=== PATIENT | female | born 1960 | race Caucasian/White ===

== ENCOUNTER 2016-09-19 06:29 | Day surgery (SDC) | payer MEDICARE, OTHER ==
[2016-09-11 15:51] VITALS: BMI 21.6
[~2016-09-19 06:29] MED LIST: HEPARIN SODIUM,PORCINE 5,000 UNIT/ML 1 ML VIAL SQ ONE; LACTATED RINGERS 1,000 ML IV SCH; Pre Op ABX Message 1 EACH MISC MISCELLANE ONE
--- NOTE | 2016-09-19 08:02 | P.GSHP ---
History of Present Illness H&P Date: 09/19/16 Chief Complaint: Left third finger skin lesion This is a 56-year-old female who has developed a nodule over her left third finger. The lesion is over the left third PIP. Patient's had a previous nodule removed which was thought to be a rheumatoid nodule. Patient is complaining of pain and pressure at the nodule site. She presents today for excision. - Constitutional Constitutional: Reports as per HPI Past Medical History Past Medical History: Fibromyalgia, Rheumatoid Arthritis (RA) Additional Past Medical History / Comment(s): migranes History of Any Multi-Drug Resistant Organisms: None Reported Past Surgical History: Orthopedic Surgery Additional Past Surgical History / Comment(s): RIGHT BUNIONECTOMY, ANG EYELID SX , RHEUMATOID NODULE LEFT MID FINGER, RT HAND TENDON REPAIR, PAST EPIDURAL, left shoulder scope and right knee Additional Past Anesthesia/Blood Transfusion Reaction / Comment(s): "I GET SEVERE HEADACHES FROM PROPOFAL, AND ALSO VERY HARD TIME WAKING UP" Past Psychological History: No Psychological Hx Reported Smoking Status: Current every day smoker Past Alcohol Use History: Occasional, Rare Past Drug Use History: None Reported - Past Family History Mother Family Medical History: No Reported History Medications and Allergies Home Medications Medication Instructions Recorded Confirmed Type Etanercept [Enbrel] 50 mg INJ [id number] 07/13/14 09/19/16 History Meloxicam [Meloxicam] 15 mg PO DAILY 07/13/14 09/19/16 History Cholecalciferol [Vitamin D3] 2,000 unit PO DAILY 09/11/16 09/19/16 History Fluticasone Nasal [place] [Flonase 2 spr EA NOSTRIL DAILY 09/11/16 09/19/16 History Nasal [place]] SUMAtriptan SUCCINATE [Imitrex] 100 mg PO ONCE 09/11/16 09/19/16 History oxyCODONE-APAP 10-325MG [Percocet 1 tab PO Q6HR PRN 09/11/16 09/19/16 History 10-325 mg] Allergies Allergy/AdvReac Type Severity Reaction Status Date / Time propofol AdvReac Unknown Verified 09/19/16 06:50 Surgical - Exam Vital Signs Temp Pulse Resp BP Pulse Ox 97.8 F 76 18 122/69 99 09/19/16 06:48 09/19/16 06:48 09/19/16 06:48 09/19/16 06:48 09/19/16 06:48 - General well developed, no distress - Eyes PERRL - ENT normal pinna - Neck no masses - Respiratory normal expansion - Cardiovascular Rhythm: regular - Abdomen Abdomen: soft, non tender Assessment and Plan Plan: Left third finger skin lesion. We'll perform excision.
[2016-09-19] MEDS ORDERED: PROPOFOL 10 MG/ML 20 ML VIAL IV ONE (08:07)
[2016-09-19] MEDS ORDERED: fentaNYL (PF) 50 MCG/ML 2 ML AMP ONE (08:07)
[2016-09-19] MEDS ORDERED: SODIUM CHLORIDE 0.9% 50 ML BAG ONE (08:07)
[2016-09-19] MEDS ORDERED: ceFAZolin 1,000 MG VIAL ONE (08:07)
[2016-09-19] MEDS ORDERED: LIDOCAINE 1% INJ 10MG/ML (20 ML MDV) ONE (08:07)
[2016-09-19] MEDS ORDERED: MIDAZOLAM 2 MG/2 ML VIAL ONE (08:07)
[2016-09-19] MEDS ORDERED: BUPIVACAINE (PF) 0.25% 30 ML VIAL SQ ONE (08:29)
[2016-09-19] MEDS ORDERED: SODIUM CHLORIDE 0.9% 50 ML with ceFAZolin 2,000 MG IV ONE ×2 (08:39)
--- NOTE | 2016-09-19 08:56 | P.OP ---
Date of Procedure: 09/19/16 Preoperative Diagnosis: Left third finger skin lesion Postoperative Diagnosis: Left third finger skin lesion Procedure(s) Performed: Excision of left third finger skin lesion Anesthesia: MAC, regional, local Surgeon: Regan Patel Estimated Blood Loss (ml): 2 Pathology: other (Left third finger skin lesion) Condition: stable Disposition: PACU Description of Procedure: The patient's placed Table in the supine position. She received IV sedation. Her finger was prepped and draped usual sterile fashion. A digital block using quarter percent plain lidocaine was performed. After adequate anesthesia the skin lesion was visualized skin lesion was just distal to the PIP joint on the third finger. The lesion was on the dorsal aspect of the finger. The lesion measured approximately 5 mm diameter. Using a 15 blade in elliptical skin incision was made around the lesion. The Bovie was used for hemostasis. The lesion was excised using sharp dissection and the Bovie was used for hemostasis. The skin was then reapproximated using 4-0 nylon. Sterile dressings was applied. Patient top procedure well was sent to recovery in stable condition.
[2016-09-19 09:03] VITALS: TEMP 97.5
[2016-09-19 09:11] VITALS: BP 122/68; PULSE 69; RESP 16
== END 2016-09-19 09:44 | disposition home or self-care (01) ==
LOC: OR 06:29
PROVIDERS: ATTEND Surgery
DX: L82.1 Other seborrheic keratosis (principal); M06.9 Rheumatoid arthritis, unspecified; F32.9 Major depressive disorder, single episode, unspecified; G43.909 Migraine, unspecified, not intractable, without status migrainosus; M79.7 Fibromyalgia; Z88.4 Allergy status to anesthetic agent; F17.200 Nicotine dependence, unspecified, uncomplicated; Z79.51 Long term (current) use of inhaled steroids; Z79.899 Other long term (current) drug therapy; Z79.891 Long term (current) use of opiate analgesic
CPT/HCPCS: 11420; 88305; J2250; J0690; J2001; J3010; J2704; 99152; 99153

== ENCOUNTER → 2016-09-27 | Outpatient (CLI) | payer MEDICARE, OTHER ==
[2016-09-30 21:17] LABS: Beef IgG 6.2 mcg/mL (< 2.0); Chicken Meat IgG 2.4 mcg/mL (< 2.0); Corn IgG 4.9 mcg/mL (< 2.0); Peanut IgG < 2.0 mcg/mL (< 2.0); Pork IgG 3.5 mcg/mL (< 2.0); Potato IgG < 2.0 mcg/mL (< 2.0); Soybean IgG < 2.0 mcg/mL (< 2.0); Tomato IgG 2.9 mcg/mL (< 2.0)
== END | disposition home or self-care (01) ==
LOC: LABWHC1 10:27
PROVIDERS: ATTEND Otolaryngology
DX: J30.89 Other allergic rhinitis (principal)
CPT/HCPCS: 36415; 86001

== ENCOUNTER → 2017-10-21 | Outpatient (CLI) | payer MEDICARE, OTHER ==
[2017-10-21 12:14] LABS: Basophils # (A) 0.1 k/uL (0-0.2); Basophils % (A) 1 %; Eosinophils # (A) 0.1 k/uL (0-0.7); Eosinophils % (A) 2 %; HCT 43.1 % (34.0-46.0); HGB 13.8 gm/dL (11.4-16.0); Lymphocytes # (A) 2.4 k/uL (1.0-4.8); Lymphocytes % (A) 37 %; MCH 30.4 pg (25.0-35.0); MCHC 31.9 g/dL (31.0-37.0); MCV 95.2 fL (80.0-100.0); Mean Platelet Volume 6.7; Monocytes # (A) 0.3 k/uL (0-1.0); Monocytes % (A) 5 %; Neutrophils # (A) 3.6 k/uL (1.3-7.7); Neutrophils % (A) 55 %; Platelet Count 383 k/uL (150-450); RBC 4.53 m/uL (3.80-5.40); RDW 12.4 % (11.5-15.5); WBC 6.5 k/uL (3.8-10.6)
--- NOTE | 2017-10-21 12:22 | XR ---
EXAMINATION TYPE: XR lumbosacral spine min 4V DATE OF EXAM: 10/21/2017 CLINICAL HISTORY: Low back pain for multiple years with no known injury TECHNIQUE: Frontal, lateral, and oblique images of the lumbar spine are obtained. COMPARISON: 10/07/2013 FINDINGS: There are 5 lumbar type vertebral bodies identified. Moderate multilevel degenerative disc disease seen as facet arthropathy, endplate sclerosis, and intervertebral disc space narrowing at L4 -L5 and L5-S1. There is grade 1 anterolisthesis of L4 on L5 this is unchanged from the exam of 014. The remainder of the lumbar spine shows satisfactory alignment without evidence of acute fractur e or dislocation. Vertebral body heights are maintained. On the oblique views there is at least mild neural foraminal narrowing at L2-L3, L3-L4 and L4-L5 on the right and at L3-L4 and L4-L5 on the left. Numerous calcifications are seen in the region of the spleen and may relate to densely calcified gra nulomas. IMPRESSION: 1. No acute fracture is seen in the lumbar spine. 2. Persistent grade 1 anterolisthesis of L4 and L5 as seen on the prior examination of 10/07/2013. 3. Moderate multilevel degenerative disc disease of the lumbar spine creating neural foraminal narrow ing as described above. More accurate assessment of degree of neuroforaminal narrowing in addition to evaluation of spinal canal stenosis and disc herniation could be performed with MR if clinically ind icated.
[2017-10-21 12:23] LABS: ALT 14 U/L (9-52); AST 18 U/L (14-36); Albumin 4.2 g/dL (3.5-5.0); Alkaline Phosphatase 83 U/L (38-126); Anion Gap 8 mmol/L; Appearance,Urine Clear (Clear); Bacteria,Urine Rare /hpf; Bilirubin,Urine Negative (Negative); Blood Urea Nitrogen 11 mg/dL (7-17); Blood,Urine Small (Negative); C Reactive Protein <5.0 mg/L (<10.0); Calcium 9.6 mg/dL (8.4-10.2); Carbon Dioxide 31 mmol/L (22-30); Chloride 103 mmol/L (98-107); Color,Urine Yellow; Creatine Kinase 52 U/L (30-135); Glucose 83 mg/dL (74-99); Glucose,Urine (UA) Negative (Negative); Ketones,Urine Negative (Negative); Leukocyte Esterase,Urine Moderate (Negative); Mucus,Urine Rare /hpf; Nitrite,Urine Negative (Negative); PH, Urine 5.5 (5.0-8.0); Potassium 4.1 mmol/L (3.5-5.1); Protein,Urine Negative (Negative); RBC,Urine 5 /hpf (0-5); Sodium 142 mmol/L (137-145); Specific Gravity,Urine 1.011 (1.001-1.035); Squamous Epithelial Cell,Urine 1 /hpf (0-4); Total Bilirubin 0.7 mg/dL (0.2-1.3); Total Protein 7.1 g/dL (6.3-8.2); Uric Acid 4.4 mg/dL (3.7-7.4); Urobilinogen,Urine <2.0 mg/dL (<2.0); WBC,Urine 3 /hpf (0-5)
[2017-10-21 12:38] LABS: T4, Free (Free Thyroxine) 1.32 ng/dL (0.78-2.19)
--- NOTE | 2017-10-21 13:04 | XR ---
EXAMINATION TYPE: XR sacroiliac joint comp BILAT DATE OF EXAM: 10/21/2017 CLINICAL HISTORY: Low back pain for multiple years with no known injury. TECHNIQUE: 3 views of the sacroiliac joints were performed COMPARISON: None. FINDINGS: There is minimal sacroiliac joint sclerosis that is symmetric and bilateral. No joint space widening is seen. No acute fracture of the sacrum is noted. Visualized bowel gas pattern within the pelvis is nonobstructive. IMPRESSION: No evidence of acute fracture or malalignment of the sacroiliac joints. Minimal degenerat mara change. No sacroiliac joint space widening.
[2017-10-21 14:36] LABS: Erythrocyte Sedimentation Rate 6 mm/hr (0-20)
[2017-10-21 15:26] LABS: Rheumatoid Factor 171 IU/mL (0-15)
[2017-10-21 17:35] LABS: Centromere Antibody Interp NEGATIVE (NEGATIVE); Cyclic Citrullinated Pep IgG POSITIVE (NEGATIVE)
== END | disposition home or self-care (01) ==
LOC: LABWHC1 10:24
PROVIDERS: ATTEND Internal Medicine
DX: M99.73 Connective tissue and disc stenosis of intervertebral foramina of lumbar region (principal); M99.74 Connective tissue and disc stenosis of intervertebral foramina of sacral region; M51.36 Other intervertebral disc degeneration, lumbar region; M43.16 Spondylolisthesis, lumbar region; G89.29 Other chronic pain; M05.79 Rheumatoid arthritis with rheumatoid factor of multiple sites without organ or systems involvement
CPT/HCPCS: 36415; 72110; 72202; 80053; 81001; 82085; 82550; 83516; 84439; 84443; 84550; 85025; 85652; 86038; 86039; 86140; 86160; 86200; 86225; 86235; 86431

== ENCOUNTER → 2019-03-15 | Outpatient (CLI) | payer MEDICARE, OTHER ==
--- NOTE | 2019-03-15 08:48 | CT ---
EXAMINATION TYPE: CT sinus wo con DATE OF EXAM: 03/15/2019 COMPARISON: None HISTORY: Chronic sinusitis CT DLP: 641.6 mGycm. Automated Exposure Control for Dose Reduction was Utilized. TECHNIQUE: CT scan of the sinuses is performed without contrast, axial images are obtained, coronal r eformatted images are also reviewed. FINDINGS: The paranasal sinuses including the frontal, ethmoid, sphenoid, and maxillary sinuses bila terally are well-aerated without abnormal opacification. The ostiomeatal complex is patent bilateral ly on the coronal images. Visualized portion of mastoid air cells show no abnormal opacification. The globes are intact bilate rally. There is a slight nasal septal deviation IMPRESSION: The sinuses are clear and the ostiomeatal complex is patent bilaterally.
== END | disposition home or self-care (01) ==
LOC: RADCTMAIN 08:18
PROVIDERS: ATTEND Otolaryngology
DX: J32.9 Chronic sinusitis, unspecified (principal)
CPT/HCPCS: 70486

== ENCOUNTER → 2019-07-29 | Outpatient (CLI) | payer MEDICARE, OTHER ==
[2019-07-29 09:25] LABS: Basophils # (A) 0.1 k/uL (0-0.2); Basophils % (A) 2 %; Eosinophils # (A) 0.1 k/uL (0-0.7); Eosinophils % (A) 2 %; HCT 43.8 % (34.0-46.0); HGB 14.3 gm/dL (11.4-16.0); Lymphocytes # (A) 1.8 k/uL (1.0-4.8); Lymphocytes % (A) 26 %; MCH 31.3 pg (25.0-35.0); MCHC 32.7 g/dL (31.0-37.0); MCV 95.7 fL (80.0-100.0); Mean Platelet Volume 6.1; Monocytes # (A) 0.5 k/uL (0-1.0); Monocytes % (A) 7 %; Neutrophils # (A) 4.4 k/uL (1.3-7.7); Neutrophils % (A) 63 %; Platelet Count 281 k/uL (150-450); RBC 4.58 m/uL (3.80-5.40); RDW 12.8 % (11.5-15.5)
[2019-07-29 14:00] LABS: Erythrocyte Sedimentation Rate 2 mm/hr (0-20)
[2019-07-29 17:50] LABS: Hepatitis B Core IgM Non-Reactive (Non-Reactive); Hepatitis B Surface AB- Quant 3.5 mIU/mL; Hepatitis B Surface Antibody Non-Reactive (Non-Reactive); Hepatitis B Surface Antigen Non-Reactive (Non-Reactive); Hepatitis C IgG Antibody Non-Reactive (Non-Reactive)
[2019-07-29 19:14] LABS: ALT 26 U/L (8-44); AST 29 U/L (13-35); African American GFR (CKD) 92.9 (60.0-200.0); Albumin/Globulin Ratio 2.19 (1.60-3.17); Alkaline Phosphatase 73 U/L (41-126); C Reactive Protein <0.4 mg/dL (0.0-0.8); Calcium 9.7 mg/dL (8.7-10.3); Carbon Dioxide 26.8 mmol/L (21.6-31.8); Chloride 106 mmol/L (96-109); Chol/HDL Ratio 4.68; Cholesterol 318 mg/dL (0-200); Globulin 2.1 g/dL (1.6-3.3); Glucose 83 mg/dL (70-110); LDL Cholesterol,Calculated 214.6 mg/dL (0.0-131.0); Non-African American GFR(CKD) 80.1 (60.0-200.0); Potassium 4.2 mmol/L (3.5-5.5); Sodium 140 mmol/L (135-145); Total Bilirubin 1.3 mg/dL (0.2-1.2); Total Protein 6.7 g/dL (6.2-8.2)
== END | disposition home or self-care (01) ==
LOC: LABWHC1 07:57
PROVIDERS: ATTEND Internal Medicine Rheumatology
DX: M05.9 Rheumatoid arthritis with rheumatoid factor, unspecified (principal); Z51.81 Encounter for therapeutic drug level monitoring; Z79.899 Other long term (current) drug therapy
CPT/HCPCS: 36415; 80053; 80061; 85025; 85652; 86140; 86480; 86704; 86705; 86706; 86803; 87340

== ENCOUNTER → 2019-11-25 | Outpatient (CLI) | payer MEDICARE, OTHER ==
--- NOTE | 2019-11-25 10:45 | CTL ---
EXAMINATION TYPE: CT Low Dose Lung DATE OF EXAM ORDERED: 11/25/2019 HISTORY: Long-term tobacco use.. Lung cancer screening CT DLP: 63.[address] CTDI: 1.7 mGy Automated exposure control for dose reduction was used. SCREENING VISIT: For study COMPARISON: None TECHNIQUE: Low dose computed tomography scan was performed through the chest at 1 mm thick sections a nd reconstructed images in the coronal plane at [address] DIAGNOSTIC QUALITY: Satisfactory FINDINGS: LUNG NODULES: None. A group of 3 calcified nodules or granulomas periphery left upper lobe measure up to 1.0 cm long axis axial image 54. There is calcified 4 mm posterior right upper lobe nodule or granuloma axial image 9 1. LUNGS: COPD: Severity: Mild Fibrosis: Severity: Mild to moderate bibasilar Lymph nodes: No greater than 1 cm noncalcified. Prominent but subcentimeter calcified left suprahilar and AP window lymph nodes. Other findings: None BILATERAL PLEURAL SPACE: Effusion: None Calcification: None Thickening: None Pneumothorax: None. HEART: Heart Size: None Coronary calcification: Mild but is focally located in the proximal left circumflex axial image 169 for reference. Pericardial effusion: None. OTHER FINDINGS: Upper abdomen: Scattered small calcifications throughout visualized portion of spleen consistent with product of old granulomatous disease. Bony thorax: Slight scoliotic curvature with mild spurring. Supraclavicular region: None. Other: None. IMPRESSION: No suspicious noncalcified greater than [address] UP [address] CHEST RECOMMENDATION: Annual low-dose lung screening CT. CT LUNG RAD: Lung-Rad 2 Benign Appearance or Behavior
== END | disposition home or self-care (01) ==
LOC: RADCTMAIN 09:42
PROVIDERS: ATTEND Family Medicine
DX: Z12.2 Encounter for screening for malignant neoplasm of respiratory organs (principal); F17.210 Nicotine dependence, cigarettes, uncomplicated

== ENCOUNTER → 2020-05-18 | Outpatient (CLI) | payer MEDICARE, OTHER ==
--- NOTE | 2020-05-18 11:14 | MR ---
MR brain without contrast HISTORY: Dizziness, benign positional vertigo Multiplanar multisequence imaging through the brain MR correlation prior brain 12/23/2015 There is no restricted diffusion. There is no hemorrhage or hydrocephalus. Cerebellopontine angles, c orpus callosum, pituitary, cervical medullary junction are stable and unremarkable. Brain signal is u nchanged. Jay-white differentiation is normal. The orbits show symmetric appearance. There are mike l vascular flow voids. Paranasal sinuses and mastoid air cells are well aerated. IMPRESSION: Stable unremarkable brain MRI.
== END | disposition home or self-care (01) ==
LOC: RADMRIMAIN 08:43
PROVIDERS: ATTEND Psychiatry & Neurology Neurology
DX: H81.10 Benign paroxysmal vertigo, unspecified ear (principal)
CPT/HCPCS: 70551

== ENCOUNTER → 2020-11-06 | Outpatient (CLI) | payer MEDICARE, OTHER ==
[2020-11-06 15:58] LABS: ALT 12 U/L (8-44); AST 16 U/L (13-35); African American GFR (CKD) 92.2 (60.0-200.0); Albumin/Globulin Ratio 1.44 (1.60-3.17); Alkaline Phosphatase 96 U/L (41-126); C Reactive Protein <0.4 mg/dL (0.0-0.8); Calcium 9.1 mg/dL (8.7-10.3); Carbon Dioxide 28.4 mmol/L (21.6-31.8); Chloride 106 mmol/L (96-109); Globulin 2.7 g/dL (1.6-3.3); Glucose 77 mg/dL (70-110); Non-African American GFR(CKD) 79.6 (60.0-200.0); Potassium 4.1 mmol/L (3.5-5.5); Sodium 140 mmol/L (135-145); Total Bilirubin 0.6 mg/dL (0.3-1.2); Total Protein 6.6 g/dL (6.2-8.2)
[2020-11-06 16:59] LABS: Basophils # (A) 0.04 X 10*3/uL (0.00-0.10); Basophils % (A) 0.6 %; Eosinophils # (A) 0.11 X 10*3/uL (0.04-0.35); Eosinophils % (A) 1.7 %; HCT 38.9 % (37.2-46.3); HGB 12.6 g/dL (12.0-15.0); Lymphocytes # (A) 1.96 X 10*3/uL (0.90-5.00); Lymphocytes % (A) 31.1 %; MCHC 32.4 g/dL (32.0-37.0); MCV 95.6 fL (80.0-97.0); Mean Platelet Volume 9.2 fL (9.5-12.2); Monocytes # (A) 0.57 X 10*3/uL (0.20-1.00); Neutrophils # (A) 3.61 X 10*3/uL (1.80-7.70); Neutrophils % (A) 57.4 %; Platelet Count 321 X 10*3/uL (140-440); RBC 4.07 X 10*6/uL (4.10-5.20); RDW 13.2 % (11.5-14.5)
[2020-11-06 21:16] LABS: Erythrocyte Sedimentation Rate 10 mm/Hr (0-30)
== END | disposition home or self-care (01) ==
LOC: LABWHC1 09:02
PROVIDERS: ATTEND Internal Medicine Rheumatology
DX: Z51.81 Encounter for therapeutic drug level monitoring (principal); M05.9 Rheumatoid arthritis with rheumatoid factor, unspecified
CPT/HCPCS: 36415; 80053; 85025; 85652; 86140; 86480

== ENCOUNTER 2021-06-08 11:01 | Day surgery (SDC) | payer MEDICARE, OTHER ==
[2021-06-06 11:33] VITALS: BMI 21.1
[~2021-06-08 11:01] MED LIST changes: -HEPARIN SODIUM,PORCINE 5,000 UNIT/ML 1 ML VIAL SQ ONE; -Pre Op ABX Message 1 EACH MISC MISCELLANE ONE
[2021-06-08 11:39] VITALS: TEMP 98
--- NOTE | 2021-06-08 13:00 | P.GSHP ---
History of Present Illness H&P Date: 06/08/21 Chief Complaint: GERD This a 60-year-old female who presents today for EGD. She's had issues with GERD. Past Medical History Past Medical History: Fibromyalgia, Rheumatoid Arthritis (RA) Additional Past Medical History / Comment(s): migranes. FEELS LIKE SOMETHING STUCK IN THROAT History of Any Multi-Drug Resistant Organisms: None Reported Past Surgical History: Orthopedic Surgery Additional Past Surgical History / Comment(s): RIGHT BUNIONECTOMY, ANG EYELID SX, RHEUMATOID NODULE LEFT MID FINGER, RT HAND TENDON REPAIR, PAST EPIDURAL, left shoulder scope and right knee SX, Past Anesthesia/Blood Transfusion Reactions: Previous Problems w/ Anesthesia Additional Past Anesthesia/Blood Transfusion Reaction / Comment(s): "I GET SEVERE HEADACHES FROM PROPOFAL, AND ALSO VERY HARD TIME WAKING UP" Smoking Status: Current every day smoker - Past Family History Mother Family Medical History: No Reported History Medications and Allergies Home Medications Medication Instructions Recorded Confirmed Type SUMAtriptan SUCCINATE [Imitrex] 100 mg PO DIRECTED PRN 09/11/16 06/08/21 History oxyCODONE-APAP 10-325MG [Percocet 1 tab PO Q6HR PRN 09/11/16 06/08/21 History 10-325 mg] Adalimumab [Humira Pen] 40 mg SQ [id number] 06/06/21 06/08/21 History Cholecalciferol (Vitamin D3) 125 mcg PO DAILY 06/06/21 06/08/21 History [Vitamin D3 (125 MCG = 5,000 IU)] Tumeric 500mg 500 mg PO DAILY 06/06/21 06/08/21 History Allergies Allergy/AdvReac Type Severity Reaction Status Date / Time propofol AdvReac SEVERE Verified 06/08/21 11:31 HEADACHE Surgical - Exam Vital Signs Temp Pulse Resp BP Pulse Ox 98 F 58 L 16 108/63 96 06/08/21 11:37 06/08/21 11:37 06/08/21 11:37 06/08/21 11:37 06/08/21 11:37 - General well developed, well nourished, no distress - Eyes PERRL - ENT normal pinna - Neck no masses - Respiratory normal expansion - Cardiovascular Rhythm: regular - Abdomen Abdomen: soft, non tender Assessment and Plan Assessment: GERD. We'll perform EGD.
[2021-06-08] MEDS ORDERED: PROPOFOL 10 MG/ML 20 ML VIAL IV ONE (13:06)
--- NOTE | 2021-06-08 13:19 | P.OP ---
Date of Procedure: 06/08/21 Preoperative Diagnosis: GERD Postoperative Diagnosis: Antral gastritis No significant hiatal hernia Minimal esophagitis Procedure(s) Performed: EGD Anesthesia: MAC Surgeon: Regan Patel Pathology: other (Antrum, esophagus) Condition: stable Disposition: PACU Description of Procedure: The patient's placed on the endoscopy table in the lateral position. She received IV sedation. The gastroscope placed oropharynx passed in the esophagus into the stomach. The scope was then placed through the pylorus. First and second portion of duodenum appeared normal. Scope was brought back the antrum this. Mildly inflamed. A biopsies performed. Scope was unretroflexed and remainder the stomach appeared normal. There was no significant hiatal hernia. The GE junction was at 40 cm. The distal esophagusAppeared minimally inflamed. A biopsies performed the proximal esophagus appeared normal. Scope withdrawn for patient.
[2021-06-08 13:48] VITALS: BP 135/77; PULSE 60; RESP 18
== END 2021-06-08 14:15 | disposition home or self-care (01) ==
LOC: ORWHC2ENDO 11:01
PROVIDERS: ATTEND Surgery
DX: K21.00 Gastro-esophageal reflux disease with esophagitis, without bleeding (principal); M06.9 Rheumatoid arthritis, unspecified; M79.7 Fibromyalgia; F17.200 Nicotine dependence, unspecified, uncomplicated; J44.9 Chronic obstructive pulmonary disease, unspecified
CPT/HCPCS: 43239; J2704; 88305

== ENCOUNTER → 2021-06-11 | Outpatient (CLI) | payer MEDICARE, OTHER ==
--- NOTE | 2021-06-14 09:43 | NM ---
EXAMINATION TYPE: NM hepatobiliary w CCK DATE OF EXAM: 06/14/2021 COMPARISON: NONE HISTORY: Right upper quadrant pain TECHNIQUE: After the intravenous administration of 4.7 mCi Tc 99m Mebrofenin hepatobiliary scintigrap hy is performed. Immediate images post injection. FINDINGS: There is satisfactory initial accumulation of tracer by the liver. The gallbladder is visualized wit hin 8 minutes. The small bowel activity is noted within 60 minutes. At one hour CCK was administere d, patient was injected with 1.2 mcg of Kinevac, and gallbladder ejection fraction is calculated at 9 2%. IMPRESSION: Elevated gallbladder ejection fraction may reflect hypercontractile state.
== END | disposition home or self-care (01) ==
LOC: RADNMMAIN 06:40
PROVIDERS: ATTEND Surgery
DX: K82.8 Other specified diseases of gallbladder (principal)

== ENCOUNTER → 2021-06-27 | Outpatient (CLI) | payer MEDICARE, OTHER ==
--- NOTE | 2021-06-27 12:21 | US ---
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 Pt states Dr felt diminished so unds with stethoscope within carotids EXAM MEASUREMENTS: RIGHT: Peak Systolic Velocity (PSV) cm/sec ----- Right CCA: 82.0 ----- Right ICA: 110.8 ----- Right ECA: 100.4 ICA/CCA ratio: 1.4 RIGHT: End Diastole cm/sec ----- Right CCA: 30.3 ----- Right ICA: 43.5 ----- Right ECA: 24.1 LEFT: Peak Systolic Velocity (PSV) cm/sec ----- Left CCA: 70.3 ----- Left ICA: 126.3 ----- Left ECA: 83.1 ICA/CCA ratio: 1.8 LEFT: End Diastole cm/sec ----- Left CCA: 26.7 ----- Left ICA: 60.3 ----- Left ECA: 19.3 VERTEBRALS (direction of flow): Right Vertebral: Antegrade Left Vertebral: Antegrade Rhythm: Normal No significant stenosis seen IMPRESSION: 1. Atherosclerotic plaque with no significant hemodynamic stenosis identified. Criteria for Assigning % of Stenosis / Diameter reduction (Estimation based on the indirect measurements of the internal carotid artery velocities (ICA PSV). 1. Normal (no stenosis)=ICA PSV < 125 cm/s: ratio < 2.0: ICA EDV<40 cm/s. 2. Less than 50% stenosis=ICA PSV < 125 cm/s: ratio < 2.0: ICA EDV<40 cm/s. 3. 50 to 69% stenosis=ICA PSV of 125 to 230 cm/s: ration 2.0 ? 4.0: ICA EDV 40-100 cm/s. 4. Greater than 70% stenosis to near occlusion= ICA PSV > 230 cm/s: ratio > 4.0: ICA EDV > 100 cm/s. 5. Near occlusion= ICA PSV velocities may be low or undetectable: variable ratio and ICA EDV. 6. Total occlusion=unable to detect flow.
== END | disposition home or self-care (01) ==
LOC: RADUSWWP 10:46
PROVIDERS: ATTEND Family Medicine
DX: I65.23 Occlusion and stenosis of bilateral carotid arteries (principal)
CPT/HCPCS: 93880

== ENCOUNTER → 2022-04-08 | Outpatient (CLI) | payer MEDICARE, OTHER ==
[2022-04-08 10:50] VITALS: BP 119/66; PULSE 77; RESP 18; TEMP 98.8
--- NOTE | 2022-04-08 12:43 | P.PAINPG ---
PQRS Measure Charge Sheet Comment: HISTORY OF PRESENT ILLNESS: 61 yr old female as a referral from Dr. Nowak presents today with severe and chronic LBP x 40 yrs (worse last 30 yrs) secondary to DDD, anterolisthesis, neuroforaminal stenoses and facet arthropathy for evaluation. Pt states her LBP is at a 6/10 in intensity, constant, shocking ache localized in the center of her lumbar spine with radiation of warmth in the inner part of her L thigh. Also admits to tingling below the knees BL. Provoked by chiropractic treatments, walking for periods of 20 min or more, or bending. Palliated with PT in 2012 via traction, TENS unit use, heat, ice, medications (Percocet QID), laying supine, repositioning and rest. PMH: Fibromyalgia, Rheumatoid Arthritis (RA) PSH: R Bunionectomy, BL Eyelid surgery, L 3rd digit excision, R Hand Tendon Repair, LESIs, L Shoulder Arthroscopy, R Knee Surgery SH: Daily tobacco use, No ETOH abuse, No illicit drug use FH: Mo- No Reported History All: See list Meds: See list REVIEW OF ORGAN SYSTEMS: CONSTITUTIONAL: No fevers or chills. No recent weight loss. NEUROLOGICAL: + numbness and tingling along the distal extremities. No seizure disorders or headaches. MUSCULOSKELETAL: + pain PSYCHIATRIC: Denies current depression or suicidal thoughts. Physical Examinations : Constitutional : Cooperative , not in acute distress . Neurologic : Cranial nerve II to XII intact. No focal neurological deficits. Psychiatric : alert & oriented x 3. Matching mood & appropriate affect. Judgment & insight intact. Musculoskeletal : Cervical Spine Motor strength in the deltoid and biceps: Normal right side. Normal Left side Motor strength biceps and the wrist extensors: Normal right side . Normal left side Motor strength in the triceps muscle: Normal right side. Normal left side Deep tendon reflexes: Normal at the biceps. Normal at Brachioradialis. Normal at triceps Vertebral body tenderness to deep palpation over Cervical facet loading test: positive bilaterally Spurling test: positive bilaterally Neck distraction test: positive bilaterally Elaina sign: positive bilaterally Lumbar spine Motor strength lower extremities ,thigh and legs 5/5 Right side , 5/5 Left side Deep tendon reflexes : Normal Knee Jerk. Normal Ankle Jerk Vertebral body tenderness over L5 Lumbar facet Loading Test: positive Right / positive Left Range of motion of the lumbar spine Flexion 30 degrees, extension 10 degrees Straight Leg Raise test: Left/ Right positive at degree Leno test: positive right / positive left. Severe tenderness over the Sacroiliac joint on the Right / Left sides Gaenslen test: positive bilaterally Seated flexion test: positive bilaterally. Sacral spine : Severe tenderness over the Sacroiliac joint: right side / left side Range of motion: Flexion of the lumbar spine <60 degrees Range of motion: Extension of the lumbar spine <20 degrees Gaenslen's Test positive Wali's Test positive Leno test: positive right side / left side Thigh Thrust Test Sacral Thrust Test Imaging: MRI without contrast of the lumbar spine from 02/25/18 reviewed Assessment/ Plan : Lumbar DDD Recommendation of LESI L5-S1. May need a series of injections, up to 3 within a 6 mo period, for optimal pain relief. Risks, benefits of procedure discussed and patient verbalized understanding. Denies aspirin or anti- coagulant use or me dical history of diabetes. Protocol for discontinuation/ continuation of medications nelly procedure discussed. All questions answered. I have spent greater than 30 minutes on patient care today. Dr Coley was available by phone for the evaluation of this patient. The time was used to review the medical records including relevant urine studies and Prescription history (MAPs), review of the available imaging, evaluation and examination of the patient, coordination of care with the medical staff and if applicable referring physicians, as well as creation of the medical record PQRS Narrative: Smoking Status Current every day smoker Home Medications: Ambulatory Orders SUMAtriptan succinate [Imitrex] 100 mg PO DIRECTED PRN 09/11/16 oxyCODONE-APAP 10-325MG [Percocet 10-325 mg] 1 tab PO Q6HR PRN 09/11/16 Adalimumab [Humira Pen] 40 mg SQ [id number] 06/06/21 Cholecalciferol (Vitamin D3) [Vitamin D3 (125 MCG = 5,000 IU)] 125 mcg PO DAILY 06/06/21 Tumeric 500mg 500 mg PO DAILY 06/06/21 Controlled Substance Measures - Controlled Substance Measures Is patient prescribed a controlled substance at discharge?: No
== END ==
LOC: PNWHC3 09:04
PROVIDERS: ATTEND Specialist
DX: M51.36 Other intervertebral disc degeneration, lumbar region (principal); M06.9 Rheumatoid arthritis, unspecified; F17.200 Nicotine dependence, unspecified, uncomplicated; Z88.4 Allergy status to anesthetic agent
CPT/HCPCS: 99211

== ENCOUNTER → 2022-04-30 | Outpatient (CLI) | payer MEDICARE, OTHER ==
--- NOTE | 2022-04-30 20:28 | MR ---
EXAMINATION TYPE: MR lumbar spine wo con DATE OF EXAM: 04/30/2022 COMPARISON: Lumbar spine x-ray October 21, 2017 HISTORY: Lower back pain, right side, radiates into left thigh, tingling in both legs. Lumbar disc de generation. TECHNIQUE: Multiplanar, multisequence imaging of the lumbar spine is performed without IV contrast. FINDINGS: Sagittal images of the lumbar spine show vertebral body heights to remain satisfactory. Per sistent grade 1 anterolisthesis L4 and L5. New slight grade 1 anterolisthesis L2 on L3 and L3 on L4. Multilevel disc desiccation. Mild to moderate disc space narrowing L4-L5 level The conus medullaris i s normal in position and signal ending at T12-L1 disc space level. Scattered Tarlov's cysts througho ut the sacrum greatest in size at the S2 level sagittal images 7 and 11 for reference. The bone marro w signal intensity is within normal limits. Mild multilevel anterior spurring. Axial images show T12-L1 and L1-L2 levels to appear within normal limits. Axial images at L2-L3 level shows spondylosis with broad-based posterior disc protrusion mildly effac es the anterior thecal sac. There is mild to moderate facet arthropathy effacing the posterolateral t hecal sac. There is mild left-sided anterior inferior neural foraminal narrowing. Axial images at L3-L4 level show subtle spondylolisthesis with mild to moderate facet arthropathy and ligamentum flavum hypertrophy effacing the posterolateral thecal sac. There is mild broad-based post erior disc protrusion mildly effacing the anterior thecal sac. There is mild right greater than left bilateral neural foraminal narrowing. Axial images at L4-L5 level show moderate to advanced facet arthropathy and ligamentum flavum hypertr ophy effacing the posterior lateral thecal sac greater on the right on axial image 15. There is spond ylolisthesis with broad-based posterior disc protrusion effacing the anterior thecal sac. There is mi ld left greater than right bilateral neural foraminal narrowing. Axial images at the L5-S1 level show mild to moderate facet arthropathy bilaterally. Spinal canal is preserved. Bilateral neural foramina are patent. No suspicious retroperitoneal findings are seen. IMPRESSION: Multilevel spondylolisthesis and degenerative changes of the lumbar spine as detailed abo ve.
== END | disposition home or self-care (01) ==
LOC: RADMRIMAIN 15:30
PROVIDERS: ATTEND Specialist
DX: M47.817 Spondylosis without myelopathy or radiculopathy, lumbosacral region (principal); M51.36 Other intervertebral disc degeneration, lumbar region; M51.26 Other intervertebral disc displacement, lumbar region; M99.73 Connective tissue and disc stenosis of intervertebral foramina of lumbar region; M43.16 Spondylolisthesis, lumbar region
CPT/HCPCS: 72148

== ENCOUNTER 2022-05-21 08:48 | Day surgery (SDC) | payer MEDICARE, OTHER ==
[2022-05-17 13:14] VITALS: BMI 20.7
[2022-05-21 10:32] VITALS: TEMP 97.2
[2022-05-21 10:49] LABS: Glucose,Whole Blood 82 mg/dL (70-110)
[2022-05-21] MEDS ORDERED: methylPREDNISolone ACETATE 80 MG/ML 1 ML VIAL ONE (11:13)
[2022-05-21] MEDS ORDERED: IOPAMIDOL M200 10 ML VIAL ONE (11:13)
[2022-05-21] MEDS ORDERED: MIDAZOLAM 2 MG/2 ML VIAL ONE (11:13)
[2022-05-21] MEDS ORDERED: fentaNYL (PF) 50 MCG/ML 2 ML AMP ONE (11:13)
--- NOTE | 2022-05-21 11:22 | P.PCN ---
Date of Procedure: 05/21/22 Description of Procedure: Procedure: 1. Right-sided L5-S1 Epidural steroid injection under fluoroscopic guidance # 1/ , 2. Lumbar epidurogram PREOPERATIVE DIAGNOSIS: Lumbar degenerative disc disease, and Lumbar radiculopathy. POSTOPERATIVE DIAGNOSIS: Lumbar degenerative disc disease, and Lumbar radiculopathy. SURGEON: Leonila Harvey ANESTHESIA: Local with 1% lidocaine, and IV sedation: Versed 2 mg, and fentanyl 100 g Sedation supervision start time : 11:15 sedation Supervision end time: 08 05 EBL: None. Specimen removed: None Fluoroscopic image: saved to electronic medical records PROCEDURE INDICATION: The patient had history of Lumbar degenerative disc disease and Lumbar radiculopathy. Failed to conservative therapy. Presented for epidural steroid injection. PROCEDURE DESCRIPTION: The patient was seen and identified in the preoperative area. Risks, benefits, complications, and alternatives were discussed with the patient. The patient agreed to proceed with the procedure and signed the consent. IV was started, and vital signs were stable. Patient was taken to the procedure area, and time out was completed. The patient was placed in the prone position on procedure table and a pillow was placed under the abdomen to reduce lumbar lordosis. The lumbosacral area was prepped and draped in the usual sterile fashion. Critical pause was taken. Vital signs were closely monitored during the procedure. Using anterior-posterior fluoroscopy, the L5-S1 interlaminar space was identified, and skin and deeper tissues were localized with 1% lidocaine. Using anterior-posterior fluoroscopy, lateral fluoroscopy, and [id number] technique, a 20 gauge 3.5 Tuohy epidural needle entered the epidural space. After negative aspiration of CSF and blood with no paresthesias, 1 ml of [id number] contrast dye was injected and an excellent epidurogram was seen. Again after negative aspiration of CSF and blood with no paresthesias, 6 mL of block solution was injected into the epidural space. Block solution contained 80 mg of Depo-Medrol, and 5 mL of preservative-free normal saline. Needle was withdrawn intact, skin was cleansed, and bandages were applied. COMPLICATIONS: None. DISPOSITION / PLANS: The patient was placed in a supine position and transferred to the recovery area in a stable condition for observation. Patient was discharged from the recovery room after meeting discharge criteria. Home discharge instructions given to the patient by the staff. The patient was reexamined prior to discharge. The patient will schedule a follow up in the clinic in 4 weeks.
[2022-05-21] MEDS ORDERED: IV FLUID CONTINUATION 700 ML IV ONE (11:26)
[2022-05-21 11:28] VITALS: RESP 16
--- NOTE | 2022-05-21 11:35 | FL ---
EXAMINATION TYPE: FL guided pain mgmt statistic DATE OF EXAM: 05/21/2022 CLINICAL HISTORY: Low back pain. TECHNIQUE: Fluoroscopy. COMPARISON: None. FINDINGS: Fluoroscopic guidance was provided during pain relief procedure performed by Dr. Harvey . A total of 4 seconds of fluoroscopic time was utilized during the procedure and two spot images are acquired. Images acquired shows needle localization at posterior L5 level. IMPRESSION: As Above.
[2022-05-21 11:55] VITALS: BP 127/71; PULSE 74
== END 2022-05-21 12:15 | disposition home or self-care (01) ==
LOC: ORPAIN 08:48
DX: M51.16 Intervertebral disc disorders with radiculopathy, lumbar region (principal); J44.9 Chronic obstructive pulmonary disease, unspecified; M06.9 Rheumatoid arthritis, unspecified; F17.200 Nicotine dependence, unspecified, uncomplicated; Z88.4 Allergy status to anesthetic agent; Z79.899 Other long term (current) drug therapy
CPT/HCPCS: 62323; J2250; J1040; J3010; Q9966

== ENCOUNTER → 2022-06-13 | Outpatient (CLI) | payer MEDICARE, OTHER ==
[2022-06-13 09:52] VITALS: BP 105/75; PULSE 95; RESP 18; TEMP 98.5
--- NOTE | 2022-06-13 13:39 | P.PAINPG ---
PQRS Measure Charge Sheet Comment: A 61 yr old female with a history of severe and chronic low back pain secondary to lumbar degenerative disc diseases and lumbar spondylosis with facet arthropathy without myelopathy presents today for evaluation s/p R paramedian MICHELLE L5-S1 #1/3. Pt states she experienced 50% pain relief x 3 wks s/p procedur e. Pain level is currently at 5/10 in intensity, constant, localized in the R lower lumbar spine, achy in character w shooting burning towards BLEs. Pain is provoked as high as 10/10 by . Pain is alleviated with PT in the past without relief, massage therapy in the past w relief, chiropractic treatments are no longer effective, lumbar traction in the past, home stretching regimen, alternating heat & ice, meds (Percocet by Dr Nowak), topicals, laying supine w LEs elevated, repositioning and rest. Interventional pain procedures completed include R Paramedial MICHELLE L5-S1 x1. Patient is currently on Percocet Patient denies any side effects of the medication(s), denies excessive drowsiness or sleepiness, denies suicidal ideation and reports that the current pain medication is helping to control the pain and improve activities of daily living. Patient denies any motor or sensory deficits. Patient denies any fever or night sweats, denies any change in the bowel movements or urination. Physical Examination: -Constitutional: Cooperative. Not in acute distress . - Neurologic: Cranial nerve II to XII intact. No focal neurological deficits. - Psychatric: Alert & oriented x 3. Matching mood & appropriate affect. Judgment and insight intact. - Musculoskeletal: Cervical spine: Muscle bulk/ tone/ strength in the bilateral upper extremities normal Vertebral body tenderness to palpation over Spurling test positive Distraction test positive Facet loading test positive Thoracic spine Muscle bulk / tone/ strength in the bilateral paraspinal muscles normal Vertebral body tender to palpation over Facet loading test positive Lumbar spine: Motor bulk/ tone/ strength lower extremities , thigh and legs : 5/5 Deep tendon reflexes : Normal Knee Jerk. Normal Ankle Jerk . Vertebral body tenderness to palpation over L5 Lumbar Facet Loading Test positive Straight Leg Raise: positive at 30 degrees right side/ left side Gaenslen's Test positive Sacral spine : Severe tenderness over the Sacroiliac joint: right side / left side Range of motion: Flexion of the lumbar spine <60 degrees Range of motion: Extension of the lumbar spine <20 degrees Gaenslen's Test positive Wali's Test positive Leno test: positive right side / left side Thigh Thrust Test Sacral Thrust Test Assessment and plan: Chronic low back pain secondary to lumbar degenerative disc disease , lumbar spondylosis with facet arthropathy without myelopathy Recommendation of MICHELLE R Paramedial L5-S1 #2. May need a series of injections, up to 3 within a 6 mo period, for optimal pain relief. Risks, benefits of procedure discussed and pt verbalized understanding. Denies anticoagulant use or medical history of diabetes. All patient questions answered I have spent less than 30 minutes on patient care today. Dr Coley was available by phone for the evaluation of this patient. The time was used to review the medical records including relevant urine studies and Prescription history (MAPs), review of the available imaging, evaluation and examination of the patient, coordination of care with the medical staff and if applicable referring physicians, as well as creation of the medical record PQRS Narrative: Smoking Status Current every day smoker Hx Alcohol Use (MH) No Home Medications: Ambulatory Orders SUMAtriptan succinate [Imitrex] 100 mg PO DIRECTED PRN 09/11/16 oxyCODONE-APAP 10-325MG [Percocet 10-325 mg] 1 tab PO Q6HR PRN 09/11/16 Adalimumab [Humira Pen] 40 mg SQ [id number] 06/06/21 Cholecalciferol (Vitamin D3) [Vitamin D3 (125 MCG = 5,000 IU)] 125 mcg PO DAILY 06/06/21 Fluticasone/Umeclidin/Vilanter [Trelegy Ellipta 100-62.5-25] 1 inhalation INHALATION DAILY 05/17/22 Controlled Substance Measures - Controlled Substance Measures Is patient prescribed a controlled substance at discharge?: No
== END ==
LOC: PNWHC3 09:17
PROVIDERS: ATTEND Specialist
DX: M47.816 Spondylosis without myelopathy or radiculopathy, lumbar region (principal); G89.29 Other chronic pain; M51.36 Other intervertebral disc degeneration, lumbar region; F17.200 Nicotine dependence, unspecified, uncomplicated
CPT/HCPCS: 99211

== ENCOUNTER → 2022-06-13 | Outpatient (CLI) | payer MEDICARE, OTHER ==
[2022-06-13 14:26] LABS: African American GFR (CKD) 107.9 (60.0-200.0); Albumin 4.4 g/dL (3.8-4.9); Albumin/Globulin Ratio 1.66 (1.60-3.17); Anion Gap 9.2 mmol/L (10.00-18.00); BUN/Creat Ratio 16.98 Ratio (12.00-20.00); Blood Urea Nitrogen 11.8 mg/dL (9.0-27.0); Calcium 9.4 mg/dL (8.7-10.3); Carbon Dioxide 30.2 mmol/L (20.0-27.5); Globulin 2.6 g/dL (1.6-3.3); Non-African American GFR(CKD) 93.1 (60.0-200.0); Potassium 4.4 mmol/L (3.5-5.5); Total Bilirubin 0.4 mg/dL (0.30-1.20)
[2022-06-13 14:46] LABS: Basophils # (A) 0.04 X 10*3/uL (0.00-0.10); Basophils % (A) 0.5 %; Eosinophils # (A) 0.12 X 10*3/uL (0.04-0.35); Eosinophils % (A) 1.5 %; HCT 38.9 % (37.2-46.3); HGB 12.5 g/dL (12.0-15.0); Immature Grans, Automated 0.1 %; Lymphocytes # (A) 2.51 X 10*3/uL (0.90-5.00); Lymphocytes % (A) 31.8 %; MCH 30.9 pg (27.0-32.0); MCHC 32.1 g/dL (32.0-37.0); Mean Platelet Volume 8.9 fL (9.5-12.2); Monocytes # (A) 0.58 X 10*3/uL (0.20-1.00); Monocytes % (A) 7.3 %; NRBC Per 100 WBC 0 /100 WBCS (0.0-0.0); Neutrophils # (A) 4.64 X 10*3/uL (1.80-7.70); Neutrophils % (A) 58.8 %; Platelet Count 315 X 10*3/uL (140-440); RBC 4.05 X 10*6/uL (4.10-5.20); RDW 13.2 % (11.5-14.5)
== END | disposition home or self-care (01) ==
LOC: LABWHC1 10:01
PROVIDERS: ATTEND Internal Medicine Rheumatology
DX: Z51.81 Encounter for therapeutic drug level monitoring (principal); M05.9 Rheumatoid arthritis with rheumatoid factor, unspecified
CPT/HCPCS: 36415; 80053; 85025; 86480

== ENCOUNTER → 2022-08-27 | Outpatient (CLI) | payer MEDICARE, OTHER ==
--- NOTE | 2022-08-27 08:55 | US ---
EXAMINATION TYPE: US carotid duplex BILAT DATE OF EXAM: 08/27/2022 COMPARISON: Prior carotid ultrasound June 27, 2021 CLINICAL HISTORY: I65.21. stenosis TECHNIQUE: Carotid duplex ultrasound examination. Indirect Doppler criteria was utilized. FINDINGS: EXAM MEASUREMENTS: RIGHT: Peak Systolic Velocity (PSV) cm/sec ----- Right CCA: 91 ----- Right ICA: 91 ----- Right ECA: 101.1 ICA/CCA ratio: 1.0 RIGHT: End Diastole cm/sec ----- Right CCA: 29.9 ----- Right ICA: 27 ----- Right ECA: 25.6 LEFT: Peak Systolic Velocity (PSV) cm/sec ----- Left CCA: 104 ----- Left ICA: 91 ----- Left ECA: 96.8 ICA/CCA ratio: 0.9 LEFT: End Diastole cm/sec ----- Left CCA: 31.4 ----- Left ICA: 38.7 ----- Left ECA: 21.2 VERTEBRALS (direction of flow): Right Vertebral: Antegrade Left Vertebral: Antegrade Rhythm: Normal OTOLARYNGOLOGY NURSE NOTES: No significant stenosis seen Jay scale images show mild peripheral plaque right carotid bulb level. IMPRESSION: No hemodynamically significant stenosis in either internal carotid artery. No significan t change from prior. Criteria for Assigning % of Stenosis / Diameter reduction (Estimation based on the indirect measurements of the internal carotid artery velocities (ICA PSV). 1. Normal (no stenosis)=ICA PSV < 125 cm/s: ratio < 2.0: ICA EDV<40 cm/s. 2. Less than 50% stenosis=ICA PSV < 125 cm/s: ratio < 2.0: ICA EDV<40 cm/s. 3. 50 to 69% stenosis=ICA PSV of 125 to 230 cm/s: ration 2.0 ? 4.0: ICA EDV 40-100 cm/s. 4. Greater than 70% stenosis to near occlusion= ICA PSV > 230 cm/s: ratio > 4.0: ICA EDV > 100 cm/s. 5. Near occlusion= ICA PSV velocities may be low or undetectable: variable ratio and ICA EDV. 6. Total occlusion=unable to detect flow.
--- NOTE | 2022-08-27 09:46 | CTL ---
EXAMINATION TYPE: CT Low Dose Lung DATE OF EXAM ORDERED: 08/27/2022 HISTORY: Long-term tobacco use. Lung cancer screening CT DLP: 52.[address] CTDI: 1.50 mGy Automated exposure control for dose reduction was used. SCREENING VISIT: First after baseline COMPARISON: Prior study November 25, 2019 TECHNIQUE: Low dose computed tomography scan was performed through the chest at 1 mm thick sections a nd reconstructed images in multiple planes at 1 mm and [address] DIAGNOSTIC QUALITY: Satisfactory FINDINGS: LUNG NODULES: Present, detailed below: Calcified nodules or benign granulomas in the left upper lobe are redemonstrated and stable. No new greater than 5 mm noncalcified pulmonary nodules. LUNGS: COPD: Severity: Mild Fibrosis: Severity: [id number] bibasilar linear scarring redemonstrated Lymph nodes: Stable prominent but calcified left suprahilar and AP window lymph nodes. Other findings: None RIGHT PLEURAL SPACE: Effusion: None Calcification: None Thickening: None Pneumothorax: None LEFT PLEURAL SPACE: Effusion: None Calcification: None Thickening: None Pneumothorax: None HEART: Heart Size: Normal Coronary Calcification: More prominent moderate focal calcification in the proximal left circumflex a rtery. Pericardial Effusion: None OTHER FINDINGS: Upper abdomen: Scattered small calcifications throughout the spleen consistent with products of old g ranulomatous disease. Bony thorax: Slight scoliotic curvature. Supraclavicular region: None Other: None IMPRESSION: No suspicious greater than 4 mm noncalcified pulmonary nodules. Evidence of old granuloma tous disease redemonstrated. CT LUNG RAD AND CT CHEST RECOMMENDATION: Lung-Rad 2 Benign Appearance or Behavior: Continue annual sc reening with LDCT in 12 months. S Modifier (other clinically significant findings): S Increasing calcified plaque in the proximal left circumflex artery. Correlate with additional cardiac risk factors.
--- NOTE | 2022-08-27 17:07 | MM ---
Reason for Exam: Screening (asymptomatic). Last mammogram was performed 3 year(s) and 8 month(s) ago. Patient History: Menarche at age 12. First Full-Term at age 18. Postmenopausal. Risk Values: Cheryl 5 year model risk: 1.1%. NCI Lifetime model risk: 4.9%. Prior Study Comparison: 12/24/2018 Bilateral MG screening mammo w CAD - 2, [facility]. Tissue Density: There are scattered fibroglandular densities. Findings: Analyzed By CAD. There are a few scattered tiny round masses throughout the bilateral breasts redemonstrated that are stable. There are scattered tiny benign-appearing round calcifications throughout the bilateral breasts redemonstrated. There is no suspicious new group of microcalcifications or new suspicious mass in either breast. Overall Assessment: Benign, BI-RAD 2 Management: Screening Mammogram of both breasts in 1 year. A clinical breast exam by your physician is recommended on an annual basis and results should be correlated with mammographic findings. Electronically signed and approved by: Pato Loera M.D.
== END | disposition home or self-care (01) ==
LOC: RADMAMWWP 08:06
PROVIDERS: ATTEND Family Medicine
DX: Z12.31 Encounter for screening mammogram for malignant neoplasm of breast (principal); Z12.2 Encounter for screening for malignant neoplasm of respiratory organs; I65.21 Occlusion and stenosis of right carotid artery; R91.8 Other nonspecific abnormal finding of lung field; D71 Functional disorders of polymorphonuclear neutrophils; Z78.0 Asymptomatic menopausal state
CPT/HCPCS: 71271; 77067; 93880

== ENCOUNTER 2022-12-14 04:33 | Emergency (ER) | payer MEDICARE, OTHER ==
[2022-12-14] MEDS ORDERED: SODIUM CHLORIDE 0.9% 1,000 ML IV STA (05:27)
[2022-12-14] MEDS ORDERED: methylPREDNISolone SOD SUCCI 125 MG/2 ML VIAL IV STA (05:36)
[2022-12-14 06:18] LABS: Basophils % (A) 0 %; Eosinophils # (A) 0.1 k/uL (0-0.7); Eosinophils % (A) 2 %; HCT 43.5 % (34.0-46.0); HGB 14.3 gm/dL (11.4-16.0); Lymphocytes # (A) 1.5 k/uL (1.0-4.8); Lymphocytes % (A) 22 %; MCH 30.7 pg (25.0-35.0); MCV 93.3 fL (80.0-100.0); Mean Platelet Volume 6.9; Monocytes # (A) 0.5 k/uL (0-1.0); Monocytes % (A) 8 %; Neutrophils # (A) 4.3 k/uL (1.3-7.7); Neutrophils % (A) 65 %; Platelet Count 347 k/uL (150-450); RBC 4.66 m/uL (3.80-5.40); RDW 12.7 % (11.5-15.5); WBC 6.6 k/uL (3.8-10.6)
[2022-12-14 06:28] LABS: Partial Thromboplastin Time 26.2 sec (22.0-30.0); Prothrombin Time 10.5 sec (9.0-12.0)
--- NOTE | 2022-12-14 06:31 | ED ---
General Adult HPI - General Chief complaint: ENT Stated complaint: Blisters on lips, difficulty swallowing Time Seen by Provider: 12/14/22 05:01 Source: patient, RN notes reviewed, old records reviewed Mode of arrival: ambulatory - History of Present Illness Initial comments: 61-year-old female presenting for evaluation of blisters on the inside of her mouth. She was recently started on antibiotic for dental infection. She noticed the blisters this evening. No difficulty breathing but she states it was painful to swallow. Patient also reports palpitations. No chest pain. She has mild dyspnea but she states this is at baseline. No fever. - Related Data Home Medications Medication Instructions Recorded Confirmed oxyCODONE-APAP 10-325MG [Percocet 1 tab PO Q6HR PRN 09/11/16 10/03/22 10-325 mg] Adalimumab [Humira Pen] 40 mg SQ [id number] 06/06/21 10/03/22 Cholecalciferol (Vitamin D3) 125 mcg PO DAILY 06/06/21 10/03/22 [Vitamin D3 (125 MCG = 5,000 IU)] Budesonide/Glycopyr/Formoterol 1 puff INHALATION DAILY 08/27/22 10/03/22 [Breztri Aerosphere Inhaler] Previous Rx's Medication Instructions Recorded Clindamycin [Cleocin] 450 mg PO TID 10 Days #30 cap 12/14/22 methylPREDNISolone Dose Pack 4 mg PO DIRECTED #21 packet 12/14/22 [Medrol Dose Pack] Allergies Allergy/AdvReac Type Severity Reaction Status Date / Time amoxicillin Allergy Rash/Hives Verified 12/14/22 07:15 Review of Systems ROS Statement: Those systems with pertinent positive or pertinent negative responses have been documented in the HPI. ROS Other: All systems not noted in ROS Statement are negative. Past Medical History Past Medical History: Fibromyalgia, Rheumatoid Arthritis (RA) Additional Past Medical History / Comment(s): migranes History of Any Multi-Drug Resistant Organisms: None Reported Past Surgical History: Orthopedic Surgery Additional Past Surgical History / Comment(s): RIGHT BUNIONECTOMY, ANG EYELID SX, RHEUMATOID NODULE LEFT MID FINGER, RT HAND TENDON REPAIR, PAST EPIDURAL, left shoulder scope and right knee SX, Past Anesthesia/Blood Transfusion Reactions: Previous Problems w/ Anesthesia Additional Past Anesthesia/Blood Transfusion Reaction / Comment(s): VERY HARD TIME WAKING UP" Past Psychological History: No Psychological Hx Reported Smoking Status: Current every day smoker Past Alcohol Use History: None Reported Past Drug Use History: None Reported - Past Family History Mother Family Medical History: No Reported History General Exam General appearance: alert, in no apparent distress Head exam: Present: atraumatic, normocephalic Eye exam: Present: normal appearance, PERRL ENT exam: Present: other (Ulcerations throughout the hard and soft palate) Respiratory exam: Present: normal lung sounds bilaterally. Absent: respiratory distress, wheezes Cardiovascular Exam: Present: normal rhythm, tachycardia GI/Abdominal exam: Present: soft. Absent: distended, tenderness, guarding Extremities exam: Present: normal inspection, normal capillary refill. Absent: pedal edema Neurological exam: Present: alert, oriented X3 Psychiatric exam: Present: normal affect, normal mood Skin exam: Present: warm, dry, intact, other (No rash). Absent: cyanosis, diaphoretic Course Vital Signs 12/14/22 12/14/22 12/14/22 04:50 07:21 08:00 Temperature 98.6 F 98.3 F Pulse Rate 132 H 89 86 Respiratory 18 16 18 Rate Blood Pressure 133/95 126/80 134/71 O2 Sat by Pulse 96 97 96 Oximetry EKG Findings - EKG Comments: EKG Findings:: EKG sinus rhythm rate 79, FL interval 167, QRS duration 90, QTC 410, no ST segment changes Medical Decision Making - Medical Decision Making Was pt. sent in by a medical professional or institution ([facility], [employer]LE [employer]AVER HELPER, urgent care, hospital, or senior living...) When possible be specific @ -[No] Did you speak to anyone other than the patient for history (EMS, parent, family, police, friend...)? What history was obtained from this source @ -[No] Did you review nursing and triage notes (agree or disagree)? Why? @ -[I reviewed and agree with nursing and triage notes] Were old charts reviewed (outside hosp., previous admission, EMS record, old EKG, old radiological studies, urgent care reports/EKG's, senior living records)? Report findings @ -[No old charts were reviewed] Differential Diagnosis (chest pain, altered mental status, abdominal pain women, abdominal pain men, vaginal bleeding, weakness, fever, dyspnea, syncope, headache, dizziness, GI bleed, back pain, seizure, CVA, palpatations, mental health, musculoskeletal)? @ -[ALLERGIC reaction EKG interpreted by me (3pts min.). @ -[As above] X-rays interpreted by me (1pt min.). @ -[None done] CT interpreted by me (1pt min.). @ -[None done] U/S interpreted by me (1pt. min.). @ -[None done] What testing was considered but not performed or refused? (CT, X-rays, U/S, labs)? Why? @ -[None] What meds were considered but not given or refused? Why? @ -[None] Did you discuss the management of the patient with other professionals (professionals i.e. , PA, POLE SHAVER HELPER, lab, RT, psych nurse, social director, office workforce planner, teacher, multisensor intelligence officer, pillowcase sewer)? Give summary @ -[No] Was smoking cessation discussed for >3mins.? @ -[No] Was critical care preformed (if so, how long)? @ -[No] Were there social determinants of health that impacted care today? How? (Homelessness, low income, unemployed, alcoholism, drug addiction, transportation, low edu. Level, literacy, decrease access to med. care, [place] [facility], rehab)? @ -[No] Was there de-escalation of care discussed even if they declined (Discuss DNR or withdrawal of care, Hospice)? DNR status @ -[No] What co-morbidities impacted this encounter? (DM, HTN, Smoking, COPD, CAD, Cancer, CVA, ARF, Chemo, Hep., AIDS, mental health diagnosis, sleep apnea, morbid obesity)? @ -[None] Was patient admitted / discharged? Hospital course, mention meds given and route, prescriptions, significant lab abnormalities, going to OR and other pertinent info. @ -[Patient was discharged home with strict return parameters. I do suspect this is an ALLERGIC reaction to amoxicillin. Patient will be switched to clindamycin. She should follow closely with her dentist. There is no other rash at this time. There is normal laboratory testing. She is given a dose of steroids in the emergency department and prescribed Medrol dose if symptoms do not improve.] Undiagnosed new problem with uncertain prognosis? @ -[no] Drug Therapy requiring intensive monitoring for toxicity (Heparin, Nitro, Insuli n, Cardizem)? @ -[No] Were any procedures done? @ -[No] Diagnosis/symptom? @ -[Possible ALLERGIC reaction] Acute, or Chronic, or Acute on Chronic? @ -[Acute] Uncomplicated (without systemic symptoms) or Complicated (systemic symptoms)? @ -[default] Side effects of treatment? @ -[No] Exacerbation, Progression, or Severe Exacerbation? @ -[No] Poses a threat to life or bodily function? How? (Chest pain, [place], [place], pneumonia, PE, COPD, DKA, ARF, appy, cholecystitis, CVA, Diverticulitis, Homicidal, Suicidal, threat to staff... and all critical care pts) @ -[No] - Lab Data Result diagrams: 12/14/22 05:50 12/14/22 05:50 Lab Results 12/14/22 12/14/22 12/14/22 Range/Units 05:50 05:50 05:50 WBC 6.6 (3.8-10.6) k/uL RBC 4.66 (3.80-5.40) m/uL Hgb 14.3 (11.4-16.0) gm/dL Hct 43.5 (34.0-46.0) % MCV 93.3 (80.0-100.0) fL MCH 30.7 (25.0-35.0) pg MCHC 33.0 (31.0-37.0) g/dL RDW 12.7 (11.5-15.5) % Plt Count 347 (150-450) k/uL MPV 6.9 Neutrophils % 65 % Lymphocytes % 22 % Monocytes % 8 % Eosinophils % 2 % Basophils % 0 % Neutrophils # 4.3 (1.3-7.7) k/uL Lymphocytes # 1.5 (1.0-4.8) k/uL Monocytes # 0.5 (0-1.0) k/uL Eosinophils # 0.1 (0-0.7) k/uL Basophils # 0.0 (0-0.2) k/uL PT 10.5 (9.0-12.0) sec INR 1.0 (<1.2) APTT 26.2 (22.0-30.0) sec Sodium 140 (137-145) mmol/L Potassium 4.3 (3.5-5.1) mmol/L Chloride 102 (98-107) mmol/L Carbon Dioxide 29 (22-30) mmol/L Anion Gap 9 mmol/L BUN 13 (7-17) mg/dL Creatinine 0.73 (0.52-1.04) mg/dL Est GFR (CKD-EPI)AfAm >90 (>60 ml/min/1.73 sqM) Est GFR (CKD-EPI)NonAf 88 (>60 ml/min/1.73 sqM) Glucose 90 (74-99) mg/dL Calcium 9.9 (8.4-10.2) mg/dL Magnesium 1.8 (1.6-2.3) mg/dL Total Bilirubin 0.9 (0.2-1.3) mg/dL AST 21 (14-36) U/L ALT 15 (4-34) U/L Alkaline Phosphatase 80 (38-126) U/L Troponin I (0.000-0.034) ng/mL Total Protein 7.8 (6.3-8.2) g/dL Albumin 4.5 (3.5-5.0) g/dL 12/14/22 Range/Units 05:50 WBC (3.8-10.6) k/uL RBC (3.80-5.40) m/uL Hgb (11.4-16.0) gm/dL Hct (34.0-46.0) % MCV (80.0-100.0) fL MCH (25.0-35.0) pg MCHC (31.0-37.0) g/dL RDW (11.5-15.5) % Plt Count (150-450) k/uL MPV Neutrophils % % Lymphocytes % % Monocytes % % Eosinophils % % Basophils % % Neutrophils # (1.3-7.7) k/uL Lymphocytes # (1.0-4.8) k/uL Monocytes # (0-1.0) k/uL Eosinophils # (0-0.7) k/uL Basophils # (0-0.2) k/uL PT (9.0-12.0) sec INR (<1.2) APTT (22.0-30.0) sec Sodium (137-145) mmol/L Potassium (3.5-5.1) mmol/L Chloride (98-107) mmol/L Carbon Dioxide (22-30) mmol/L Anion Gap mmol/L BUN (7-17) mg/dL Creatinine (0.52-1.04) mg/dL Est GFR (CKD-EPI)AfAm (>60 ml/min/1.73 sqM) Est GFR (CKD-EPI)NonAf (>60 ml/min/1.73 sqM) Glucose (74-99) mg/dL Calcium (8.4-10.2) mg/dL Magnesium (1.6-2.3) mg/dL Total Bilirubin (0.2-1.3) mg/dL AST (14-36) U/L ALT (4-34) U/L Alkaline Phosphatase (38-126) U/L Troponin I <0.012 (0.000-0.034) ng/mL Total Protein (6.3-8.2) g/dL Albumin (3.5-5.0) g/dL Disposition Clinical Impression: Allergic reaction, Toothache Disposition: HOME SELF-CARE Condition: Good Instructions (If sedation given, give patient instructions): Toothache (ED), General Allergic Reaction (ED) Prescriptions: Clindamycin [Cleocin] 450 mg PO TID 10 Days #30 cap methylPREDNISolone Dose Pack [Medrol Dose Pack] 4 mg PO DIRECTED #21 packet Is patient prescribed a controlled substance at d/c from ED?: No Referrals: Lenin Nowak MD [Primary Care Provider] - 1-2 days Time of Disposition: 07:15
[2022-12-14 06:35] LABS: ALT 15 U/L (4-34); AST 21 U/L (14-36); African American GFR (CKD) >90 (>60 ml/min/1.73 sqM); Albumin 4.5 g/dL (3.5-5.0); Alkaline Phosphatase 80 U/L (38-126); Anion Gap 9 mmol/L; Blood Urea Nitrogen 13 mg/dL (7-17); Calcium 9.9 mg/dL (8.4-10.2); Carbon Dioxide 29 mmol/L (22-30); Chloride 102 mmol/L (98-107); Glucose 90 mg/dL (74-99); Magnesium 1.8 mg/dL (1.6-2.3); Non-African American GFR(CKD) 88 (>60 ml/min/1.73 sqM); Potassium 4.3 mmol/L (3.5-5.1); Sodium 140 mmol/L (137-145); Total Bilirubin 0.9 mg/dL (0.2-1.3); Total Protein 7.8 g/dL (6.3-8.2)
[2022-12-14] MEDS ORDERED: KETOROLAC 15 MG/ML 1 ML VIAL IVP STA (07:12)
[2022-12-14 08:02] VITALS: BP 134/71; PULSE 86; RESP 18; TEMP 98.3
== END 2022-12-14 08:02 | disposition home or self-care (01) ==
LOC: EC 04:33
DX: T78.40XA Allergy, unspecified, initial encounter (principal); K08.89 Other specified disorders of teeth and supporting structures; F17.200 Nicotine dependence, unspecified, uncomplicated; Z88.0 Allergy status to penicillin
CPT/HCPCS: 36415; 93005; 80053; 83735; 84484; 85025; 85610; 85730; 99284; 96374; 96375; 96361; J2930; J1885

== ENCOUNTER 2022-12-15 05:55 | Emergency (ER) | payer MEDICARE, OTHER ==
[2022-12-15 06:00] VITALS: BP 138/84; PULSE 97; RESP 16; TEMP 98.3
[2022-12-15] MEDS ORDERED: HYDROmorphone 1 MG/ML 1 ML SYRINGE IM STA (06:41)
[2022-12-15] MEDS ORDERED: LIDOCAINE VISCOUS 2% 15 ML CUP MUCOUS MEM ONE (06:41)
--- NOTE | 2022-12-15 06:51 | ED ---
General Adult HPI - General Chief complaint: Recheck/Abnormal Lab/Rx Stated complaint: Blisters in mouth Time Seen by Provider: 12/15/22 06:26 Source: patient, RN notes reviewed Mode of arrival: ambulatory Limitations: no limitations - History of Present Illness Initial comments: This a 62-year-old female presents emergency Department with chief complaint of sores on her mouth, lip and facial region. Patient states she started with a headache 1 week ago initially thought she had a sinus infection was placed on some antibiotics. Patient seen in the emergency department yesterday but this may be related to ALLERGIC reaction was switched antibiotics and placed on prednisone. Patient states symptoms have worsened she has increasing blisters now and her oral mucosa region and face. Patient states the pain is excruciating she has no vision changes she's no difficulty swallowing. - Related Data Home Medications Medication Instructions Recorded Confirmed oxyCODONE-APAP 10-325MG [Percocet 1 tab PO Q6HR PRN 09/11/16 10/03/22 10-325 mg] Adalimumab [Humira Pen] 40 mg SQ [id number] 06/06/21 10/03/22 Cholecalciferol (Vitamin D3) 125 mcg PO DAILY 06/06/21 10/03/22 [Vitamin D3 (125 MCG = 5,000 IU)] Budesonide/Glycopyr/Formoterol 1 puff INHALATION DAILY 08/27/22 10/03/22 [Breztri Aerosphere Inhaler] Previous Rx's Medication Instructions Recorded Clindamycin [Cleocin] 450 mg PO TID 10 Days #30 cap 12/14/22 methylPREDNISolone Dose Pack 4 mg PO DIRECTED #21 packet 12/14/22 [Medrol Dose Pack] Lidocaine Viscous 2% [Xylocaine 5 ml MUCOUS MEM QID PRN #200 ml 12/15/22 Viscous] valACYclovir HCL [Valtrex] 1,000 mg PO TID #30 tablet 12/15/22 Allergies Allergy/AdvReac Type Severity Reaction Status Date / Time amoxicillin Allergy Rash/Hives Verified 12/15/22 06:00 Review of Systems ROS Statement: Those systems with pertinent positive or pertinent negative responses have been documented in the HPI. ROS Other: All systems not noted in ROS Statement are negative. Past Medical History Past Medical History: Fibromyalgia, Rheumatoid Arthritis (RA) Additional Past Medical History / Comment(s): migranes History of Any Multi-Drug Resistant Organisms: None Reported Past Surgical History: Orthopedic Surgery Additional Past Surgical History / Comment(s): RIGHT BUNIONECTOMY, ANG EYELID SX, RHEUMATOID NODULE LEFT MID FINGER, RT HAND TENDON REPAIR, PAST EPIDURAL, left shoulder scope and right knee SX, Past Anesthesia/Blood Transfusion Reactions: Previous Problems w/ Anesthesia Additional Past Anesthesia/Blood Transfusion Reaction / Comment(s): VERY HARD TIME WAKING UP" Past Psychological History: No Psychological Hx Reported Smoking Status: Current every day smoker Past Alcohol Use History: None Reported Past Drug Use History: None Reported - Past Family History Mother Family Medical History: No Reported History General Exam General appearance: alert, in no apparent distress Head exam: Present: atraumatic, normocephalic, normal inspection Eye exam: Present: normal appearance, PERRL, EOMI. Absent: scleral icterus, conjunctival injection, periorbital swelling ENT exam: Present: mucous membranes moist, TM's normal bilaterally, normal external ear exam. Absent: normal oropharynx (No dentition, there are and blistering and sores that is unilateral to the right side of her mouth.) Neck exam: Present: normal inspection, full ROM. Absent: tenderness, meningismus, lymphadenopathy Respiratory exam: Present: normal lung sounds bilaterally. Absent: respiratory distress, wheezes, rales, rhonchi, stridor Cardiovascular Exam: Present: regular rate, normal rhythm, normal heart sounds. Absent: systolic murmur, diastolic murmur, rubs, gallop, clicks Course Vital Signs 12/15/22 05:56 Temperature 98.3 F Pulse Rate 97 Respiratory 16 Rate Blood Pressure 138/84 O2 Sat by Pulse 96 Oximetry Medical Decision Making - Medical Decision Making Was pt. sent in by a medical professional or institution (, PA, FOUNDRY WORKER, urgent care, hospital, or alf...) When possible be specific @ -No Did you speak to anyone other than the patient for history (EMS, parent, family, police, friend...)? What history was obtained from this source @ -No Did you review nursing and triage notes (agree or disagree)? Why? @ -I reviewed and agree with nursing and triage notes Were old charts reviewed (outside hosp., previous admission, EMS record, old EKG, old radiological studies, urgent care reports/EKG's, alf records)? Report findings @ -Reviewed prior chart from yesterday and including laboratory studies Differential Diagnosis (chest pain, altered mental status, abdominal pain women, abdominal pain men, vaginal bleeding, weakness, fever, dyspnea, syncope, headache, dizziness, GI bleed, back pain, seizure, CVA, palpatations, mental health, musculoskeletal)? @ -[Herpes zoster, ulcers, ALLERGIC reaction, stomatitis this list is not all- inclusive EKG interpreted by me (3pts min.). @ -None X-rays interpreted by me (1pt min.). @ -None done CT interpreted by me (1pt min.). @ -None done U/S interpreted by me (1pt. min.). @ -None done What testing was considered but not performed or refused? (CT, X-rays, U/S, labs)? Why? @ -[Labs considered though patient had laboratory studies yesterday What meds were considered but not given or refused? Why? @ -None Did you discuss the management of the patient with other professionals (professionals i.e. , PA, FOUNDRY WORKER, lab, RT, psych nurse, psychologist social, metal bonding press operator, teacher, special skills officer, porter sample case)? Give summary @ -No Was smoking cessation discussed for >3mins.? @ -No Was critical care preformed (if so, how long)? @ -No Were there social determinants of health that impacted care today? How? (Homelessness, low income, unemployed, alcoholism, drug addiction, transportation, low edu. Level, literacy, decrease access to med. care, prison, rehab)? @ -No Was there de-escalation of care discussed even if they declined (Discuss DNR or withdrawal of care, Hospice)? DNR status @ -No What co-morbidities impacted this encounter? (DM, HTN, Smoking, COPD, CAD, Cancer, CVA, ARF, Chemo, Hep., AIDS, mental health diagnosis, sleep apnea, morbid obesity)? @ -Chronic pain, fibromyalgia Was patient admitted / discharged? Hospital course, mention meds given and route, prescriptions, significant lab abnormalities, going to OR and other pertinent info. @ -Discharge patient appears to have herpes zoster the oropharynx, oral region patient was given this lidocaine for pain relief, patient is currently on Percocet. Patient advised to stop the antibiotics will restart on Valtrex 3 times daily she'll follow-up with PCP and return for any worsening change in symptoms Undiagnosed new problem with uncertain prognosis? @ -No Drug Therapy requiring intensive monitoring for toxicity (Heparin, Nitro, Insulin, Cardizem)? @ -No Were any procedures done? @ -No Diagnosis/symptom? @ -Herpes zoster Acute, or Chronic, or Acute on Chronic? @ -Acute Uncomplicated (without systemic symptoms) or Complicated (systemic symptoms)? @ -Uncomplicated Side effects of treatment? @ -No Exacerbation, Progression, or Severe Exacerbation? @ -No Poses a threat to life or bodily function? How? (Chest pain, [place], [place], pneumonia, PE, COPD, DKA, ARF, appy, cholecystitis, CVA, Diverticulitis, Homicidal, Suicidal, threat to staff... and all critical care pts) @ -No Disposition Clinical Impression: Herpes zoster Disposition: HOME SELF-CARE Condition: Stable Instructions (If sedation given, give patient instructions): Shingles (ED) Additional Instructions: Please return to the Emergency Department if symptoms worsen or any other concerns. Prescriptions: valACYclovir HCL [Valtrex] 1,000 mg PO TID #30 tablet Lidocaine Viscous 2% [Xylocaine Viscous] 5 ml MUCOUS MEM QID PRN #200 ml PRN Reason: Pain Is patient prescribed a controlled substance at d/c from ED?: No Referrals: Lenin Nowak MD [Primary Care Provider] - 1-2 days Time of Disposition: 06:50
== END 2022-12-15 07:05 | disposition home or self-care (01) ==
LOC: EC 05:55
DX: B02.9 Zoster without complications (principal); M79.7 Fibromyalgia; M19.90 Unspecified osteoarthritis, unspecified site; F17.200 Nicotine dependence, unspecified, uncomplicated; Z79.899 Other long term (current) drug therapy; Z88.0 Allergy status to penicillin
CPT/HCPCS: 99283; 96372; J1170

== ENCOUNTER 2023-02-25 11:40 | Day surgery (SDC) | payer MEDICARE, OTHER ==
[2023-02-21 10:36] VITALS: BMI 21.6
[~2023-02-25 11:40] MED LIST changes: +LIDOCAINE 1% (10MG/ML) FOR IV START INTRADERMA PRN
[2023-02-25 12:54] VITALS: RESP 16; TEMP 97.5
[2023-02-25] MEDS ORDERED: IOPAMIDOL M200 10 ML VIAL ONE (13:22)
[2023-02-25] MEDS ORDERED: methylPREDNISolone ACETATE 80 MG/ML 1 ML VIAL ONE (13:22)
--- NOTE | 2023-02-25 13:28 | P.PCN ---
Date of Procedure: 02/25/23 Procedure(s) Performed: PREOPERATIVE DIAGNOSIS: 1- Lumbar Degenerative Disc Diseases 2-Lumbar spondylosis with Facet arthropathy without myelopathy. POSTOPERATIVE DIAGNOSIS: 1-lumbar degenerative disc disease. 2-lumbar spondylosis with facet arthropathy without myelopathy. PROCEDURE 1. Lumbar epidural steroid injection under fluoroscopic guidance at the L5-S1 level.( right paramedial ) (Fluoroscopy imaging was available in radiology department) 2. Lumbar epidurogram. ANESTHESIA: Local anesthesia with lidocaine 1% 3 mL only : EBL: Minimal PROCEDURE INDICATION: The patient with low back pain and radiculitis symptoms unresponsive to conservative treatment. Fluoroscopy was used to optimize visualization of the needle placement and to maximize safety. PROCEDURE DESCRIPTION / TECHNIQUE: The patient was seen and identified in the preoperative area. Risks, benefits, complications including but not limited to infections ,bleeding ,allergic reaction to the medications ,nerve damage and not complete pain releife , and alternatives were discussed with the patient. The patient agreed to proceed with the procedure and signed the consent. IV was started, and vital signs were stable. Patient was taken to the OR and time out was completed. The patient was placed in the prone position on procedure table and a pillow was placed under the abdomen to reduce lumbar lordosis. The lumbosacral area was prepped and draped in the usual sterile fashion.ere closely monitored during the procedure. Vital signs was monitered during the entire procedure. Using anterior-posterior fluoroscopy, the L5-S1 interlaminar space was identified and the skin over this site was marked and then infiltrated with 1% lidocaine subcutaneously. Subsequently, a 20-gauge Tuohy epidural needle was inserted ( right paramedial ) and advanced toward the epidural space using the ``Loss of resistance technique and guided by AP and lateral fluoroscopy. The correct needle position in the epidural space was verified with the injection of 2 mL of the water soluble contrast dye Isovue 200 contrast and observing an excellent epidurogram with the epidural spread of the dye, after negative aspiration for blood and CSF and in the absence of paresthesias. Again after negative aspiration, a 6 ml mixture containing 80 mg of Depo-medrol ( Preservetive Free ), and 2 ml of preservative free Normal Saline, and 2 ml of preservative free lidocaine 1% solution was injected and a washout of epidurogram was seen. Needle was withdrawn intact, skin was cleansed, and bandages were applied. COMPLICATIONS: None DISPOSITION / PLANS: The patient was placed in a supine position and transferred to the recovery area in a stable condition for observation. There was no evidence of lower extremity motor or sensory deficit after the procedure. Patient was discharged from the recovery room after meeting discharge criteria. Home discharge instructions were given to the patient by the staff. The patient was reexamined prior to discharge. The patient will schedule a follow up in the clinic in 2-4 weeks.
[2023-02-25 13:31] VITALS: BP 142/80; PULSE 84
--- NOTE | 2023-02-25 13:43 | FL ---
Intraoperative/procedural fluoroscopic services were provided for lumbar epidural steroid injection. Total fluoroscopy time is 1 second with a total of 1 submitted image to PACS. Total DAP [id number] mGym2 . Please see the operative note for further details.
== END 2023-02-25 13:45 | disposition home or self-care (01) ==
LOC: ORPAIN 11:40
PROVIDERS: ATTEND Specialist
DX: M51.16 Intervertebral disc disorders with radiculopathy, lumbar region (principal); M47.26 Other spondylosis with radiculopathy, lumbar region
CPT/HCPCS: 62323; J1040; Q9966

== ENCOUNTER → 2023-08-21 | Outpatient (CLI) | payer MEDICARE, OTHER ==
[2023-08-21 11:51] VITALS: BP 115/76; PULSE 65; RESP 15; TEMP 97
--- NOTE | 2023-08-21 15:33 | P.PAINPG ---
PQRS Measure Charge Sheet Comment: A 61 yr old female with a history of severe and chronic LBP x 40 yrs secondary to DDD, spondylosis and facet arthropathy without myelopathy presents today for evaluation s/p R paramedian MICHELLE L5-S1 #2/3. Pt states she experienced 100% pain relief x 5 mo s/p procedure. Pain level is provoked at 8/10 in intensity, constant, localized in the R lower lumbar spine, predominantly axial, achy in character w occasional shooting burning towards BLEs. Pain is provoked w over activity. Pain is alleviated with PT in the past without relief, massage therapy in the past w relief, chiropractic treatments are no longer effective, lumbar traction in the past, home stretching regimen, alternating heat & ice, meds, t opicals, laying supine w LEs elevated, repositioning and rest. Oswestry axial pain score of 24. Interventional pain procedures completed include R Paramedial MICHELLE L5-S1 x2 Patient is currently on Percocet 10/325mg #[address] Nowak Patient denies any side effects of the medication(s), denies excessive drowsiness or sleepiness, denies suicidal ideation and reports that the current pain medication is helping to control the pain and improve activities of daily living. Patient denies any motor or sensory deficits. Patient denies any fever or night sweats, denies any change in the bowel movements or urination. Physical Examination: -Constitutional: Cooperative. Not in acute distress . - Neurologic: Cranial nerve II to XII intact. No focal neurological deficits. - Psychatric: Alert & oriented x 3. Matching mood & appropriate affect. Judgment and insight intact. - Musculoskeletal: Cervical spine: Muscle bulk/ tone/ strength in the bilateral upper extremities normal Vertebral body tenderness to palpation over Spurling test positive Distraction test positive Facet loading test positive Thoracic spine Muscle bulk / tone/ strength in the bilateral paraspinal muscles normal Vertebral body tender to palpation over Facet loading test positive Lumbar spine: Motor bulk/ tone/ strength lower extremities , thigh and legs : 5/5 Deep tendon reflexes : Normal Knee Jerk. Normal Ankle Jerk . Vertebral body tenderness to palpation over L5 Fernandez test positive over R L5-S1 Lumbar Facet Loading Test positive Straight Leg Raise: positive at 30 degrees right side/ left side Gaenslen's Test positive Sacral spine : Severe tenderness over the Sacroiliac joint: right side / left side Range of motion: Flexion of the lumbar spine <60 degrees Range of motion: Extension of the lumbar spine <20 degrees Gaenslen's Test positive Wali's Test positive Leno test: positive right side / left side Thigh Thrust Test Sacral Thrust Test Assessment and plan: Chronic low back pain secondary to lumbar degenerative disc disease , lumbar spondylosis with facet arthropathy without myelopathy Recommendation of R paramedian MICHELLE L5-S1 #3. May need a series of injections, up to 3 within a 6 mo period, for optimal pain relief. Risks, benefits of procedure discussed and pt verbalized understanding. Denies anticoagulant use or medical history of diabetes. All patient questions answered I have spent less than 30 minutes on patient care today. Dr Coley was available by phone for the evaluation of this patient. The time was used to review the medical records including relevant urine studies and Prescription history (MAPs), review of the available imaging, evaluation and examination of the patient, coordination of care with the medical staff and if applicable referring physicians, as well as creation of the medical record PQRS Narrative: Smoking Status Current every day smoker Hx Alcohol Use (MH) No Home Medications: Ambulatory Orders oxyCODONE-APAP 10-325MG [Percocet 10-325 mg] 1 tab PO Q6HR PRN 09/11/16 Adalimumab [Humira Pen] 40 mg SQ [id number] 06/06/21 Cyclobenzaprine [Flexeril] 10 mg PO DAILY PRN 02/21/23 diazePAM [Valium] 10 mg PO HS PRN 02/21/23 Controlled Substance Measures - Controlled Substance Measures Is patient prescribed a controlled substance at discharge?: No
== END ==
LOC: PNWHC3 09:11
PROVIDERS: ATTEND Specialist
DX: M51.37 Other intervertebral disc degeneration, lumbosacral region (principal); M47.817 Spondylosis without myelopathy or radiculopathy, lumbosacral region; F17.200 Nicotine dependence, unspecified, uncomplicated
CPT/HCPCS: 99211

== ENCOUNTER → 2023-08-21 | Outpatient (CLI) | payer MEDICARE, OTHER ==
[2023-08-21 15:37] LABS: Basophils # (A) 0.03 X 10*3/uL (0.00-0.10); Basophils % (A) 0.4 %; Eosinophils # (A) 0.23 X 10*3/uL (0.04-0.35); Eosinophils % (A) 3.4 %; HGB 12.7 g/dL (12.0-15.0); Lymphocytes # (A) 2.46 X 10*3/uL (0.90-5.00); Lymphocytes % (A) 36.4 %; MCH 31.4 pg (27.0-32.0); MCHC 32.6 g/dL (32.0-37.0); MCV 96.5 FL (80.0-97.0); Mean Platelet Volume 9.4 FL (9.5-12.2); Monocytes # (A) 0.42 X 10*3/uL (0.20-1.00); Monocytes % (A) 6.2 %; NRBC Per 100 WBC 0 X 10*3/uL (0.00-0.01); Neutrophils # (A) 3.59 X 10*3/uL (1.80-7.70); Neutrophils % (A) 53.3 %; Platelet Count 317 X 10*3/uL (140-440); RBC 4.04 X 10*6/uL (4.10-5.20); RDW 13.3 % (11.5-14.5); WBC 6.75 X 10*3/uL (4.50-10.00)
[2023-08-21 16:08] LABS: ALT 11 U/L (8-44); AST 15 U/L (13-35); Albumin 4.4 g/dL (3.8-4.9); Albumin/Globulin Ratio 1.76 Ratio (1.60-3.17); Alkaline Phosphatase 71 U/L (41-126); BUN/Creat Ratio 13.62 Ratio (12.00-20.00); Blood Urea Nitrogen 10.9 mg/dL (9.0-27.0); C Reactive Protein <0.30 mg/dL (0.00-0.80); Carbon Dioxide 28.5 mmol/L (21.6-31.8); Chloride 106 mmol/L (96-109); Globulin 2.5 g/dL (1.6-3.3); Glucose 84 mg/dL (70-110); Potassium 5.4 mmol/L (3.5-5.5); Sodium 143 mmol/L (135-145); Total Bilirubin 0.4 mg/dL (0.3-1.2); Total Protein 6.9 g/dL (6.2-8.2)
[2023-08-21 16:29] LABS: Erythrocyte Sedimentation Rate 3 mm/Hr (0-30)
== END | disposition home or self-care (01) ==
LOC: LABWHC1 08:11
PROVIDERS: ATTEND Internal Medicine Rheumatology
DX: Z51.81 Encounter for therapeutic drug level monitoring (principal); M05.9 Rheumatoid arthritis with rheumatoid factor, unspecified
CPT/HCPCS: 36415; 80053; 85025; 85652; 86140; 86480

== ENCOUNTER 2023-09-04 08:14 | Day surgery (SDC) | payer MEDICARE, OTHER ==
[~2023-09-04 08:14] MED LIST changes: -LIDOCAINE 1% (10MG/ML) FOR IV START INTRADERMA PRN
[2023-09-04 08:43] VITALS: TEMP 97.6
[2023-09-04] MEDS ORDERED: methylPREDNISolone ACETATE 80 MG/ML 1 ML VIAL ONE (09:13)
[2023-09-04] MEDS ORDERED: ROPIVACAINE 5MG/ML 20ML VIAL ONE (09:13)
[2023-09-04] MEDS ORDERED: IOPAMIDOL M200 10 ML VIAL ONE (09:13)
--- NOTE | 2023-09-04 09:42 | P.PCN ---
Description of Procedure: PREOPERATIVE DIAGNOSIS: 1- Lumbar Degenerative Disc Diseases 2-Lumbar spondylosis with Facet arthropathy without myelopathy. 3-lumbar spinal stenosis POSTOPERATIVE DIAGNOSIS: 1-lumbar degenerative disc disease. 2-lumbar spondylosis with facet arthropathy without myelopathy. 3-lumbar spinal stenosis. PROCEDURE Injection of radial contrast material into L5-S1 interspace, interpretation of epidurogram, injection of steroid at L5-S1 epidural space under fluoroscopic guidance. ANESTHESIA: Lidocaine 1% subcutaneously. In OR continuous pulse ox, EKG, blood pressure and volleyball complication was maintained with the patient. EBL: Minimal PROCEDURE INDICATION: Before the procedure were discussed with the patient d etailed procedure, alternatives, complications including infection, bleeding, nerve damage, paralysis all of which could be permanent. Patient understands and all questions were answered. PROCEDURE DESCRIPTION : After getting consent, patient in OR in prone position. Back was prepped with chlorhexidine and draped in sterile fashion. After injecting 10 mL of 1% lidocaine subcutaneously, a 20-gauge Tuohy needle was introduced at L5-S1 interspace with loss of resistance technique using a syringe filled with air. Negative CSF, negative blood, negative paresthesia. Needle position was confir med with AP and lateral view of the fluoroscope. After repeat negative aspiration 2 mL of Omnipaque 200 water soluble contrast was injected. Contrast was noted in the epidural space. No contrast was noted into intrathecal or intravascular space. After repeat negative aspiration 6 mL solution was injected intermittently which consists of 5 mL of preservative-free normal saline mixed with 1 mL of 80 mg Depo-Medrol. Needle was withdrawn intact. Skin was cleansed and Band-Aids was applied. DISPOSITION / PLANS: The patient tolerated the procedure well. No complication. The patient was placed in a supine position and transferred to the recovery area in a stable condition for observation. There was no evidence of lower extremity motor or sensory deficit after the procedure. Patient was discharged from the recovery room after meeting discharge criteria. Home discharge instructions were given to the patient by the staff. The patient was reexamined prior to discharge. The patient will schedule a follow up in the clinic in 2-4 weeks.
[2023-09-04 10:04] VITALS: BP 111/70; PULSE 60; RESP 18
--- NOTE | 2023-09-04 10:32 | FL ---
EXAMINATION TYPE: FL guided pain mgmt statistic Intraoperative/procedural fluoroscopic services were provided. Total fluoroscopy time is 5 seconds with a total of 2 submitted images to PACS. Please see the operative/procedural note for further details. DAP: [id number] mGym2
== END 2023-09-04 09:46 | disposition home or self-care (01) ==
LOC: ORPAIN 08:14
PROVIDERS: ATTEND Pain Medicine Interventional Pain Medicine
DX: M47.816 Spondylosis without myelopathy or radiculopathy, lumbar region (principal); M48.061 Spinal stenosis, lumbar region without neurogenic claudication; M51.36 Other intervertebral disc degeneration, lumbar region
CPT/HCPCS: 62323; J1040; Q9966; J2795

== ENCOUNTER → 2024-05-24 | Outpatient (CLI) | payer MEDICARE, OTHER ==
[2024-05-24 15:29] LABS: Basophils # (A) 0.03 X 10*3/uL (0.00-0.10); Basophils % (A) 0.4 %; Eosinophils # (A) 0.23 X 10*3/uL (0.04-0.35); Eosinophils % (A) 3.1 %; HCT 37.9 % (37.2-46.3); HGB 12.4 g/dL (12.0-15.0); Lymphocytes # (A) 2.37 X 10*3/uL (0.90-5.00); Lymphocytes % (A) 32.3 %; MCH 32.5 pg (27.0-32.0); MCHC 32.7 g/dL (32.0-37.0); MCV 99.2 FL (80.0-97.0); Mean Platelet Volume 9.5 FL (9.5-12.2); Monocytes # (A) 0.44 X 10*3/uL (0.20-1.00); NRBC Per 100 WBC 0 X 10*3/uL (0.00-0.01); Neutrophils # (A) 4.26 X 10*3/uL (1.80-7.70); Neutrophils % (A) 58.1 %; Platelet Count 362 X 10*3/uL (140-440); RBC 3.82 X 10*6/uL (4.10-5.20); RDW 13.4 % (11.5-14.5); WBC 7.34 X 10*3/uL (4.50-10.00)
[2024-05-24 15:39] LABS: ALT 10 U/L (8-44); AST 17 U/L (13-35); Alkaline Phosphatase 75 U/L (41-126); BUN/Creat Ratio 18.25 Ratio (12.00-20.00); Blood Urea Nitrogen 14.6 mg/dL (9.0-27.0); C Reactive Protein <0.30 mg/dL (0.00-0.80); Calcium 9.1 mg/dL (8.7-10.3); Carbon Dioxide 26.1 mmol/L (21.6-31.8); Chloride 107 mmol/L (96-109); Globulin 2.5 g/dL (1.6-3.3); Glucose 81 mg/dL (70-110); Potassium 4.1 mmol/L (3.5-5.5); Sodium 144 mmol/L (135-145); Total Bilirubin 0.4 mg/dL (0.3-1.2); Total Protein 6.5 g/dL (6.2-8.2)
[2024-05-24 16:17] LABS: Erythrocyte Sedimentation Rate 5 mm/Hr (0-30)
== END | disposition home or self-care (01) ==
LOC: LABWHC1 10:43
PROVIDERS: ATTEND Internal Medicine Rheumatology
DX: Z51.81 Encounter for therapeutic drug level monitoring (principal); M54.50 Low back pain, unspecified; M05.9 Rheumatoid arthritis with rheumatoid factor, unspecified; G89.4 Chronic pain syndrome
CPT/HCPCS: 36415; 80053; 85025; 85652; 86140; 86480

== ENCOUNTER → 2024-07-23 | Outpatient (CLI) | payer MEDICARE, OTHER ==
[2024-07-23 10:21] LABS: Basophils # (A) 0.01 X 10*3/uL (0.00-0.10); Basophils % (A) 0.1 %; Eosinophils # (A) 0.47 X 10*3/uL (0.04-0.35); Eosinophils % (A) 6.4 %; HCT 38.3 % (37.2-46.3); HGB 12.4 g/dL (12.0-15.0); Lymphocytes # (A) 2.74 X 10*3/uL (0.90-5.00); Lymphocytes % (A) 37.4 %; MCH 31.7 pg (27.0-32.0); MCHC 32.4 g/dL (32.0-37.0); Mean Platelet Volume 8.9 FL (9.5-12.2); Monocytes # (A) 0.39 X 10*3/uL (0.20-1.00); Monocytes % (A) 5.3 %; NRBC Per 100 WBC 0 X 10*3/uL (0.00-0.01); Neutrophils # (A) 3.69 X 10*3/uL (1.80-7.70); Neutrophils % (A) 50.5 %; Platelet Count 372 X 10*3/uL (140-440); RBC 3.91 X 10*6/uL (4.10-5.20); RDW 13.3 % (11.5-14.5); WBC 7.32 X 10*3/uL (4.50-10.00)
[2024-07-23 10:27] LABS: ALT 8 U/L (8-44); AST 17 U/L (13-35); Albumin 4.1 g/dL (3.8-4.9); Albumin/Globulin Ratio 1.52 Ratio (1.60-3.17); Alkaline Phosphatase 79 U/L (41-126); BUN/Creat Ratio 13.75 Ratio (12.00-20.00); Calcium 9.3 mg/dL (8.7-10.3); Carbon Dioxide 27.1 mmol/L (21.6-31.8); Chloride 104 mmol/L (96-109); Globulin 2.7 g/dL (1.6-3.3); Glucose 101 mg/dL (70-110); Potassium 3.8 mmol/L (3.5-5.5); Sodium 142 mmol/L (135-145); Total Bilirubin 0.5 mg/dL (0.3-1.2); Total Protein 6.8 g/dL (6.2-8.2)
[2024-07-23 15:56] LABS: Gliadin AB IgA, Deaminated Negative (Negative); Gliadin AB IgA, Unit 2.2 U/mL; Gliadin AB IgG, Deaminated Negative (Negative); Gliadin AB IgG, Unit <0.4 U/mL
== END | disposition home or self-care (01) ==
LOC: LABWHC1 07:30
PROVIDERS: ATTEND Internal Medicine Gastroenterology
DX: K52.9 Noninfective gastroenteritis and colitis, unspecified (principal)
CPT/HCPCS: 36415; 80053; 83516; 85025

== ENCOUNTER → 2025-03-23 | Outpatient (CLI) | payer MEDICARE, OTHER ==
[2025-03-23 08:49] VITALS: BP 117/73; PULSE 88; RESP 16; TEMP 97
--- NOTE | 2025-03-23 10:07 | XR ---
EXAMINATION TYPE: XR lumbar spine 2 or 3V DATE OF EXAM: 03/23/2025 9:34 AM COMPARISON: 10/21/2017. CLINICAL INDICATION: Female, 64 years old with history of M54.16 Lumbar pain; PHH, pain TECHNIQUE: XR lumbar spine 2 or 3V - Frontal, lateral and coned in L5-S1 lateral views of the spine. FINDINGS: No evidence of any acute osseous pathology. No evidence of loss of vertebral body height i s seen. There is grade 1 anterolisthesis of L4 on L5 alignment of the lumbar vertebral bodies. Scatte red disc space narrowing. Multilevel marginal osteophyte formation throughout the visualized spine. T here is facet joint arthropathy throughout the spine. Scattered at least mild neural foraminal stenos is. This course of the arterial vasculature. IMPRESSION: 1. No acute fracture. 2. Mild to moderate multilevel disc degeneration. 3. Grade 1 anterolisthesis of L4 on L5 [facility] Florina Cavazos, , 03/23/2025 10:05 AM
--- NOTE | 2025-03-23 13:40 | P.PAINPG ---
Objective - Vital Signs Vital signs: Intake & Output 03/22/25 03/23/25 03/23/25 18:59 06:59 18:59 Weight 61.235 kg PQRS Measure Charge Sheet Comment: A 64 yr old female with a history of severe and chronic LBP x 40 yrs secondary to radiculopathy, spondylosis and facet arthropathy without myelopathy presents today for evaluation s/p MICHELLE L5-S1 #3. Pt states she experienced 80% pain relief x 1 yr s/p procedure. Pain level is provoked at 8 /10 in intensity, c onstant, localized in the R lower lumbar spine, predominantly axial, achy in character w occasional shooting burning towards BLEs. Pain is provoked w over activity. Pain is alleviated with PT in the past without relief, massage therapy in the past w relief, chiropractic treatments contraindicated per chiropractor, lumbar traction in the past, home stretching regimen, alternating heat & ice, meds, topicals, laying supine w LEs elevated, repositioning and rest. Oswestry axial pain score of 24. Interventional pain procedures completed include R Paramedial MICHELLE L5-S1 x2, MICHELLE L5-S1 x1 (09/06) Patient is currently on Percocet 10/325mg #[address] Now[address] Patient denies any side effects of the medication(s), denies excessive drowsiness or sleepiness, denies suicidal ideation and reports that the current pain medication is helping to control the pain and improve activities of daily living. Patient denies any motor or sensory deficits. Patient denies any fever or night sweats, denies any change in the bowel movements or urination. Physical Examination: -Constitutional: Cooperative. Not in acute distress . - Neurologic: Cranial nerve II to XII intact. No focal neurological deficits. - Psychatric: Alert & oriented x 3. Matching mood & appropriate affect. Judgment and insight intact. - Musculoskeletal: Cervical spine: Muscle bulk/ tone/ strength in the bilateral upper extremities normal Vertebral body tenderness to palpation over Spurling test positive Distraction test positive Facet loading test positive Thoracic spine Muscle bulk / tone/ strength in the bilateral paraspinal muscles normal Vertebral body tender to palpation over Facet loading test positive Lumbar spine: Motor bulk/ tone/ strength lower extremities , thigh and legs : 5/5 Deep tendon reflexes : Normal Knee Jerk. Normal Ankle Jerk . Vertebral body tenderness to palpation over L5 Fernandez test positive over R L5-S1 Lumbar Facet Loading Test positive Straight Leg Raise: positive at 30 degrees right side/ left side Gaenslen's Test positive Sacral spine : Severe tenderness over the Sacroiliac joint: right side / left side Range of motion: Flexion of the lumbar spine <60 degrees Range of motion: Extension of the lumbar spine <20 degrees Gaenslen's Test positive Wali's Test positive Leno test: positive right side / left side Thigh Thrust Test Sacral Thrust Test Imaging: MRI non contrast lumbar spine from 2021 reviewed Assessment and plan: Chronic low back pain secondary to lumbar degenerative disc disease , lumbar spondylosis with facet arthropathy without myelopathy Recommendation of lumbar x ray x 6 wks and HEP x 6 wks M54.16. All patient questions answered I have spent less than 30 minutes on patient care today. Dr Coley was available by phone for the evaluation of this patient. The time was used to review the medical records including relevant urine studies and Prescription history (MAPs), review of the available imaging, evaluation and examination of the patient, coordination of care with the medical staff and if applicable referring physicians, as well as creation of the medical record PQRS Narrative: Smoking Status Current every day smoker Hx Alcohol Use (MH) No Home Medications: Ambulatory Orders oxyCODONE-APAP 10-325MG [Percocet 10-325 mg] 1 tab PO Q6HR PRN 09/11/16 Adalimumab [Humira Pen] 40 mg SQ TH 06/06/21 diazePAM [Valium] 10 mg PO HS PRN 02/21/23 Cholecalciferol (Vitamin D3) [Vitamin D3 (125 MCG = 5,000 IU)] 125 mcg PO QAM 09/02/23 Omeprazole 20 mg PO 03/23/25 Controlled Substance Measures - Controlled Substance Measures Is patient prescribed a controlled substance at discharge?: No
== END ==
LOC: PNWHC3 08:24
PROVIDERS: ATTEND Specialist
DX: M47.26 Other spondylosis with radiculopathy, lumbar region (principal); M51.360 Other intervertebral disc degeneration, lumbar region with discogenic back pain only; F17.200 Nicotine dependence, unspecified, uncomplicated
CPT/HCPCS: 72100; G0463; 99211

== ENCOUNTER → 2025-03-25 | Outpatient (CLI) | payer MEDICARE, OTHER ==
--- NOTE | 2025-03-25 11:21 | MR ---
INDICATION: Patient age:Female; 64 years old; Reason for study: M54.16 radiculopathy; PHH. COMPARISONS: Lumbar spine radiographs 03/23/2025, MRI lumbar spine 04/30/2022. TECHNIQUE: Multi planar, multi sequence imaging was performed utilizing: T1-weighted, T2-weighted, a nd turbo inversion recovery imaging of the lumbar spine. The patient was not given contrast. FINDINGS: The lumbar vertebral bodies do have preserved heights. Persisting grade 1 anterolisthesis of L2 on L3, L3 on L4 and L4 on L5 without pars defects. Multilevel disc desiccation is present. Mild disc height loss at L4-L5. The conus medullaris and the distal spinal cord do appear unremarkable wi th regards to their signal intensity and morphology. Multiple sacral Tarlov cysts. L1-L2: No significant disc pathology is identified. The spinal canal and neural foramen are patent. L2-L3: Grade 1 anterolisthesis. Broad-based disc bulge with ligamentum flavum buckling and bilateral facet arthropathy. Mild to moderate spinal canal stenosis. Minimal bilateral neural foraminal stenos is. L3-L4: Grade 1 anterolisthesis with uncovering the disc. Broad-based disc bulge with ligamentum flav um buckling and bilateral facet arthropathy. Moderate spinal canal stenosis. Mild bilateral neural fo raminal stenosis with right greater than left. L4-L5: Grade 1 anterolisthesis with uncovering of the disc. Ligamentum flavum buckling and bilateral facet arthropathy. Central disc protrusion superimposed upon a broad-based disc bulge redemonstrated. Moderate spinal canal stenosis redemonstrated. Mild bilateral neural foraminal stenosis. L5-S1: The intervertebral disc appears round on its contour posteriorly without significant mass eff ect upon the thecal sac. Bilateral facet arthropathy. Neural canals do remain patent. Other significant findings: None. IMPRESSION: Overall stable multilevel degenerative disc disease and osteoarthritic changes as detailed above from prior MR 04/30/2022. Multilevel grade 1 anterolisthesis without priors defect. [facility], , 03/25/2025 11:18 AM
== END | disposition home or self-care (01) ==
LOC: RADMRIMAIN 09:38
PROVIDERS: ATTEND Specialist
DX: M51.16 Intervertebral disc disorders with radiculopathy, lumbar region (principal); M47.26 Other spondylosis with radiculopathy, lumbar region
CPT/HCPCS: 72148